=== PATIENT | male | born 1955 | race Caucasian/White ===

== ENCOUNTER 2018-11-27 20:13 | Inpatient (IN) ==
[~2018-11-27 20:13] MED LIST: VANCOMYCIN 1 GM/NS 1 GM/250 ML IVPB IV ONE
[2018-11-27] MEDS ORDERED: NS 1,000 ML IV ONE ×2 (20:41→21:44)
[2018-11-27 21:14] LABS: URINE SOURCE CATH
--- NOTE | 2018-11-27 21:18 | Diag Imaging Result Doc PS360 ---
EXAM: CHEST-1 VIEW 11/27/2018 HISTORY: ams TECHNIQUE: AP portable semiupright at 2110 COMMENT: The inspiration is better than on 11/21/2013. There are no focal opacities. There is a calcified granuloma in the right lower lobe. IMPRESSION: No acute disease. Electronically signed by Sedrick Gil 11/27/2018 9:15 PM
[2018-11-27 21:20] LABS: BILIRUBIN URINE NEGATIVE (NEGATIVE); BLOOD URINE LARGE (NEGATIVE); COLOR YELLOW; GLUCOSE URINE >1000 mg/dL (NEGATIVE); KETONE URINE TRACE mg/dL (NEGATIVE); LEUKOCYTES URINE TRACE (NEGATIVE); NITRITE URINE NEGATIVE (NEGATIVE); PH URINE 5.5; PROTEIN URINE 100 mg/dL (NEGATIVE); SP GRAVITY URINE 1.015; TURBIDITY URINE HAZY (CLEAR); UROBILINOGEN URINE NORMAL (NORMAL)
[2018-11-27 21:24] LABS: UR EPITHELIAL CELLS <10 /HPF (<10); URINE BACTERIA NEGATIVE /HPF; URINE RBC <10 /HPF (<10); URINE WBC <10 /HPF (<10)
[2018-11-27 21:29] LABS: BASO# 0.05 X1000 (0.0-0.2); BASO% 0.2 % (0.0-0.8); EOS# 0.01 X1000 (0.0-0.7); HEMATOCRIT 30.8 % (42.0-52.0); HEMOGLOBIN 10.4 g/dL (14.0-18.0); IMM GRAN# 0.35 X1000 (0.0-0.04); IMM GRAN% 1.3 % (0.0-0.5); LYMPH# 1.07 X1000 (1.2-3.4); LYMPH% 3.8 % (20.5-51.1); MCH 28.7 PG (27-31); MCHC 33.8 g/dL (33-37); MCV 84.8 FL (81-99); MONO# 1.66 X1000 (0.11-0.59); MONO% 5.9 % (1.7-9.3); MPV 13.2 FL (7.4-10.4); NEUT# 24.78 X1000 (1.4-6.5); NEUT% 88.8 % (42.2-75.2); PLT 124 X1000 (130-400); RBC 3.63 XMIL (4.7-6.1); WBC 27.92 X1000 (4.8-10.8)
[2018-11-27 21:32] LABS: UR AMPHETAMINES QUAL NONE DETECTED (NONE DETECT); UR BARBITUATES QUAL NONE DETECTED (NONE DETECT); UR BENZODIAZEPIN QUAL NONE DETECTED (NONE DETECT); UR CANNABINOIDS QUAL NONE DETECTED (NONE DETECT); UR COCAINE QUAL NONE DETECTED (NONE DETECT); UR METHADONE QUAL NONE DETECTED (NONE DETECT); UR OPIATES QUAL NONE DETECTED (NONE DETECT); UR OXYCODONE QUAL NONE DETECTED (NONE DETECT); UR PCP QUAL NONE DETECTED (NONE DETECT)
[2018-11-27 21:42] LABS: BE -13.1 mmoll (-2.0-2.0); BLOOD TYPE VENOUS; HCO3-(ACT) 13.9 mmoll (22-27); PCO2(98.6) 28 mmHg (40-60); PO2(98.6) 25 mmHg (30-55); SAMPLE BLOOD; SAO2 60.1 % (40.0-85.0); pH(98.6) 7.26 (7.32-7.43)
[2018-11-27 21:43] LABS: URINE CASTS NONE SEEN; URINE CRYSTALS NONE SEEN; URINE YEAST NONE SEEN
[2018-11-27] MEDS ORDERED: TYLENOL PR ONE (21:45)
[2018-11-27] MEDS ORDERED: ZOSYN 4.5 GM in NS 100 ML IV ONE (21:45)
[2018-11-27 21:50] LABS: GLUCOSE 693 mg/dL (70-104)
[2018-11-27 21:51] LABS: AGAP 25; ALB/GLOB RATIO 0.8; ALBUMIN 2.6 g/dL (3.5-5.0); ALKALINE PHOSPHATASE 177 U/L (32-122); BUN 61 mg/dL (8-22); CALCIUM 8.4 mg/dL (8.8-10.2); CHLORIDE 87 mmol/L (98-107); COSMO 302; CREATININE 4.2 mg/dL (0.7-1.2); ESTIMATED GFR 14; GOT 188 U/L (10-34); GPT 67 U/L (10-44); LIPASE 45 U/L (13-60); POTASSIUM 4.2 mmol/L (3.5-5.1); SODIUM 125 mmol/L (136-145); TCO2 13 mmol/L (25-35); TOTAL BILIRUBIN 1.26 mg/dL (0.20-1.00); TOTAL PROTEIN 5.8 g/dL (6.3-8.3)
[2018-11-27] MEDS ORDERED: HUMULIN R 100 UNIT in NS 100 ML IV SCH (22:00)
[2018-11-27 22:28] LABS: PHENYTOIN < 0.80 ug/mL (10-20)
[2018-11-27] MEDS ORDERED: CEREBYX 1,000 MG in NS 50 ML IV ONE (23:00)
[2018-11-27] MEDS ORDERED: CEREBYX IV ONE (23:03)
[2018-11-28] MEDS ORDERED: NS 1,000 ML IV ONE (01:58)
[2018-11-28] MEDS ORDERED: ASPIRIN PR ONE (02:15)
--- NOTE | 2018-11-28 02:15 | PROVIDER DOCUMENTATION ---
This chart was entered by Fredis Abrams Scribe, acting as scribe for Ivana Rose MD. HPI-Neurological Disorder - General Chief Complaint: Seizure Stated Complaint: seizure/fall Time Seen by Provider: 11/27/18 20:51 Source: family (Mom) Unable to obtain history due to:: other (Confused unable to articulate) Allergies/Adverse Reactions: Patient Allergies Allergy/AdvReac Type Severity Reaction Status Date / Time No Known Allergies Allergy Verified 11/27/18 21:10 Home Medications: Home Medication List Medication Instructions Recorded Confirmed Last Taken Type Amitriptyline [Elavil] 25 mg PO HS 11/16/13 11/16/13 11/15/13 20:00 History Atenolol 50 mg PO DAILY 11/16/13 11/16/13 11/15/13 18:00 History Levetiracetam [Levetiracetam ER] 1,000 mg PO BID 11/16/13 11/16/13 11/15/13 08:00 History Metformin E.r. [Glucophage Xr] 750 mg PO QPM 11/16/13 11/16/13 11/15/13 18:00 History Phenytoin [Dilantin] 200 mg PO BID 11/16/13 11/16/13 11/15/13 21:00 History Simvastatin 40 mg PO QHS 11/16/13 11/16/13 11/15/13 21:00 History Docusate Sodium [Colace] 100 mg PO BID #0 capsule 12/17/13 Unknown Rx Glyburide 2.5 mg PO DAILY #0 tablet 12/17/13 Unknown Rx Hydrocodone/APAP 5 mg/325 mg 1 each PO Q8HR #0 tablet 12/17/13 Unknown Rx [[place]-5] Iron Carbonyl/Ascorbic Acid 1 each PO BID #0 tablet 12/17/13 Unknown Rx [Icar-C] Lactobacillus Rhamnosus GG 1 each PO BID #0 capsule 12/17/13 Unknown Rx [Culturelle] Polyethylene Glycol 3350 [Miralax] 17 gm PO DAILY PRN #0 powd.pack 12/17/13 Unknown Rx - History of Present Illness-Neuro Nature of Presenting Problem: Pt is a 63 y/o M comes to the ED by EMS with AMS. Per EMS pt fell from bed and likely had a seizure and was found to have hyperglycemia wtih EMS. Pt markedly confused on arrival and unable to provide any history. Per mom pt has been in the bed for the past 3 days and she does not think he has been complaint with his meds. States he fell from bed earlier today and appeared to have a seizure and then remained confused despite several hours passing so she called EMS. No known fever or ingestion. Severity: reports: severe Onset/Duration: reports: this afternoon Timing: reports: still present Context: reports: seizure activity Approximate time patient was last seen normal?: 14:00 Character of Altered Mental Status: reports: confused, seizure activity Any recent trauma/injury?: reports: none Review of Systems - Adult - REVIEW OF SYSTEMS - ADULT ROS:: unobtainable per condition Constitutional: denies: chills, fever Past History - Adult - PAST MEDICAL HISTORY-ADULT Review of Records: reports: Old Records Reviewed, Nursing Assessment Review, Medications Reviewed Physical Exam- Neurological - Physical Exam-Neuro Initial Vital Signs Reviewed: Yes General Appearance: other (confused with purposeful mumbling and reaching out but incomprehensible words,) Eye Exam: bilateral eye: normal inspection, PERRL HENMT: moist mucous membranes, normal ENT inspection, pharynx normal, other (dried bloody appearing emesis at corner of mouth) Head Injury: no evidence of injury. negative: active bleeding Neck: non-tender, full range of motion, supple, normal inspection Respiratory: lungs clear, normal breath sounds, no pleuratic chest pain, no respiratory distress, no accessory muscle use Cardiovascular: normal peripheral pulses, tachycardia Abdominal Exam: normal bowel sounds, soft, tenderness Extremity: non-tender, no pedal edema. negative: other (bilateral ulcers on feet with necrosis to bialteral greater toes) social science research assistant Exam: normal hearing, PERRL. negative: normal speech Neurologic: other (moves all extremities equally, confused, no facial droop). negative: facial droop, motor weakness Integumentary: normal color, normal turgor, warm/dry Psych/Mental Status: negative: normal mood/affect (confused) Progress - PLAN OF CARE/RESULTS Progress/Plan/Lab Results: Vital Signs - 8 hr 11/27/18 20:12 11/27/18 20:19 11/27/18 20:28 Temperature 97.3 F L Pulse Rate 111 H 113 H 112 H Respiratory Rate 30 H 25 H 28 H Blood Pressure 139/72 139/72 O2 Sat by Pulse Oximetry 11/27/18 20:30 11/27/18 20:32 11/27/18 20:37 Temperature Pulse Rate 113 H 114 H 115 H Respiratory Rate 36 H 24 30 H Blood Pressure 126/108 124/93 O2 Sat by Pulse Oximetry 11/27/18 20:40 11/27/18 20:50 11/27/18 20:52 Temperature 102.2 F H Pulse Rate 110 H 115 H Respiratory Rate 27 H 26 H Blood Pressure O2 Sat by Pulse Oximetry 11/27/18 21:00 11/27/18 21:01 11/27/18 21:06 Temperature Pulse Rate 112 H 113 H 113 H Respiratory Rate 23 23 28 H Blood Pressure 81/76 136/95 O2 Sat by Pulse Oximetry 11/27/18 21:07 11/27/18 21:10 11/27/18 21:14 Temperature Pulse Rate 112 H 115 H 112 H Respiratory Rate 23 29 H 37 H Blood Pressure 144/72 O2 Sat by Pulse Oximetry 11/27/18 21:20 11/27/18 21:21 11/27/18 21:30 Temperature Pulse Rate 110 H 114 H 109 H Respiratory Rate 33 H 32 H 24 Blood Pressure 159/151 O2 Sat by Pulse Oximetry 91 L 92 L 11/27/18 21:31 11/27/18 21:41 11/27/18 21:51 Temperature Pulse Rate 116 H 108 H 113 H Respiratory Rate 28 H 22 29 H Blood Pressure 124/69 126/74 128/77 O2 Sat by Pulse Oximetry 95 11/27/18 21:52 11/27/18 22:31 11/27/18 22:35 Temperature Pulse Rate 112 H 115 H 112 H Respiratory Rate 26 H 24 36 H Blood Pressure 121/78 O2 Sat by Pulse Oximetry 84 L 11/27/18 22:40 11/27/18 22:41 11/27/18 22:50 Temperature Pulse Rate 117 H 117 H 124 H Respiratory Rate 29 H 33 H 32 H Blood Pressure 121/78 O2 Sat by Pulse Oximetry 87 L 89 L 92 L 11/27/18 22:51 11/27/18 23:00 11/27/18 23:03 Temperature Pulse Rate 122 H 123 H 124 H Respiratory Rate 27 H 27 H 27 H Blood Pressure 144/70 115/49 O2 Sat by Pulse Oximetry 85 L 91 L 87 L 11/27/18 23:10 11/27/18 23:11 11/27/18 23:20 Temperature 101.3 F H 101.5 F H Pulse Rate 122 H 122 H 119 H Respiratory Rate 31 H 29 H 25 H Blood Pressure 130/85 O2 Sat by Pulse Oximetry 96 89 L 94 L 11/27/18 23:21 11/27/18 23:22 11/27/18 23:30 Temperature 101.5 F H Pulse Rate 120 H 117 H 120 H Respiratory Rate 31 H 30 H 29 H Blood Pressure 123/87 O2 Sat by Pulse Oximetry 97 99 77 L 11/27/18 23:31 11/27/18 23:40 11/27/18 23:50 Temperature Pulse Rate 121 H 124 H 120 H Respiratory Rate 28 H 31 H 30 H Blood Pressure 133/77 O2 Sat by Pulse Oximetry 95 98 98 11/27/18 23:52 11/28/18 00:00 11/28/18 00:02 Temperature 101.3 F H Pulse Rate 120 H 116 H 115 H Respiratory Rate 28 H 25 H 28 H Blood Pressure 104/63 87/61 O2 Sat by Pulse Oximetry 97 97 97 11/28/18 00:10 Temperature Pulse Rate 113 H Respiratory Rate 29 H Blood Pressure O2 Sat by Pulse Oximetry 98 11/27/18 21:28 Stool Occult Blood (JOHN) - Final Stool 11/27/18 20:54 Gastric Occult Blood - Final Emesis Laboratory Results - last 24 hr 11/27/18 11/27/18 11/27/18 20:18 20:22 20:22 WBC 27.92 H RBC 3.63 L Hgb 10.4 L Hct 30.8 L MCV 84.8 MCH 28.7 MCHC 33.8 RDW Std Deviation 16.0 H Plt Count 124 L MPV 13.2 H Immature Gran % (Auto) 1.3 H Neut % (Auto) 88.8 H Lymph % (Auto) 3.8 L [place] % (Auto) 5.9 Eos % (Auto) 0.0 Baso % (Auto) 0.2 Immature Gran # (Auto) 0.35 H Neut # (Auto) 24.78 H Lymph # (Auto) 1.07 L [place] # (Auto) 1.66 H Eos # (Auto) 0.01 Baso # (Auto) 0.05 Specimen Type VBG pH VBG pCO2 VBG pO2 VBG HCO3 VBG O2 Saturation VBG Base Excess VBG Lactate Sodium Potassium Chloride Carbon Dioxide Anion Gap BUN Creatinine Estimated GFR/1.73 m2 BUN/Creatinine Ratio Glucose POC Glucose 500 H D Calculated Osmolality Calcium Total Bilirubin AST ALT Alkaline Phosphatase Troponin T Total Protein Albumin Globulin Albumin/Globulin Ratio Lipase Urine Source Urine Color Urine Turbidity Urine pH Ur Specific Welch Urine Protein Ur Glucose (Stick) Ur Ketones (Stick) Urine Blood Urine Nitrite Urine Bilirubin Urobilinogen Dipstick Urine Leukocytes Urine WBC (Auto) Urine RBC (Auto) U Epithel Cells (Auto) Urine Bacteria (Auto) Urine Crystals Small Round Cells Urine Casts Urine Yeast-like Cells Urine Opiates Screen Ur Oxycodone Screen Ur Methadone, Qual Ur Barbiturates Screen Total Phenytoin Ur Phencyclidine Scrn Ur Amphetamines Screen U Benzodiazepines Scrn Urine Cocaine Screen U Cannabinoids Screen Plasma/Serum Ethyl Alc 11/27/18 11/27/18 11/27/18 20:22 20:22 20:50 WBC RBC Hgb Hct MCV MCH MCHC RDW Std Deviation Plt Count MPV Immature Gran % (Auto) Neut % (Auto) Lymph % (Auto) [place] % (Auto) Eos % (Auto) Baso % (Auto) Immature Gran # (Auto) Neut # (Auto) Lymph # (Auto) [place] # (Auto) Eos # (Auto) Baso # (Auto) Specimen Type VBG pH VBG pCO2 VBG pO2 VBG HCO3 VBG O2 Saturation VBG Base Excess VBG Lactate Sodium 125 L Potassium 4.2 Chloride 87 L Carbon Dioxide 13 L Anion Gap 25 BUN 61 H Creatinine 4.2 H Estimated GFR/1.73 m2 14 BUN/Creatinine Ratio 15 Glucose 693 H* POC Glucose Calculated Osmolality 302 Calcium 8.4 L Total Bilirubin 1.26 H AST 188 H ALT 67 H Alkaline Phosphatase 177 H Troponin T 0.367 H* Total Protein 5.8 L Albumin 2.6 L Globulin 3.2 Albumin/Globulin Ratio 0.8 Lipase 45 Urine Source CATH Urine Color YELLOW Urine Turbidity HAZY Urine pH 5.5 Ur Specific Welch 1.015 Urine Protein 100 A Ur Glucose (Stick) >1000 A Ur Ketones (Stick) TRACE A Urine Blood LARGE A Urine Nitrite NEGATIVE Urine Bilirubin NEGATIVE Urobilinogen Dipstick NORMAL Urine Leukocytes TRACE A Urine WBC (Auto) <10 Urine RBC (Auto) <10 U Epithel Cells (Auto) <10 Urine Bacteria (Auto) NEGATIVE Urine Crystals NONE SEEN Small Round Cells Not Reportable Urine Casts NONE SEEN Urine Yeast-like Cells NONE SEEN Urine Opiates Screen Ur Oxycodone Screen Ur Methadone, Qual Ur Barbiturates Screen Total Phenytoin < 0.80 L Ur Phencyclidine Scrn Ur Amphetamines Screen U Benzodiazepines Scrn Urine Cocaine Screen U Cannabinoids Screen Plasma/Serum Ethyl Alc 11/27/18 11/27/18 11/27/18 20:50 21:30 22:42 WBC RBC Hgb Hct MCV MCH MCHC RDW Std Deviation Plt Count MPV Immature Gran % (Auto) Neut % (Auto) Lymph % (Auto) [place] % (Auto) Eos % (Auto) Baso % (Auto) Immature Gran # (Auto) Neut # (Auto) Lymph # (Auto) [place] # (Auto) Eos # (Auto) Baso # (Auto) Specimen Type VENOUS VBG pH 7.26 L VBG pCO2 28 L VBG pO2 25 L VBG HCO3 13.9 L VBG O2 Saturation 60.1 VBG Base Excess -13.1 L VBG Lactate 4.10 H Sodium Potassium Chloride Carbon Dioxide Anion Gap BUN Creatinine Estimated GFR/1.73 m2 BUN/Creatinine Ratio Glucose POC Glucose 500 H Calculated Osmolality Calcium Total Bilirubin AST ALT Alkaline Phosphatase Troponin T Total Protein Albumin Globulin Albumin/Globulin Ratio Lipase Urine Source Urine Color Urine Turbidity Urine pH Ur Specific Welch Urine Protein Ur Glucose (Stick) Ur Ketones (Stick) Urine Blood Urine Nitrite Urine Bilirubin Urobilinogen Dipstick Urine Leukocytes Urine WBC (Auto) Urine RBC (Auto) U Epithel Cells (Auto) Urine Bacteria (Auto) Urine Crystals Small Round Cells Urine Casts Urine Yeast-like Cells Urine Opiates Screen NONE DETECTED Ur Oxycodone Screen NONE DETECTED Ur Methadone, Qual NONE DETECTED Ur Barbiturates Screen NONE DETECTED Total Phenytoin Ur Phencyclidine Scrn NONE DETECTED Ur Amphetamines Screen NONE DETECTED U Benzodiazepines Scrn NONE DETECTED Urine Cocaine Screen NONE DETECTED U Cannabinoids Screen NONE DETECTED Plasma/Serum Ethyl Alc 11/28/18 11/28/18 00:10 01:15 WBC RBC Hgb Hct MCV MCH MCHC RDW Std Deviation Plt Count MPV Immature Gran % (Auto) Neut % (Auto) Lymph % (Auto) [place] % (Auto) Eos % (Auto) Baso % (Auto) Immature Gran # (Auto) Neut # (Auto) Lymph # (Auto) [place] # (Auto) Eos # (Auto) Baso # (Auto) Specimen Type VBG pH VBG pCO2 VBG pO2 VBG HCO3 VBG O2 Saturation VBG Base Excess VBG Lactate Sodium Potassium Chloride Carbon Dioxide Anion Gap BUN Creatinine Estimated GFR/1.73 m2 BUN/Creatinine Ratio Glucose POC Glucose 500 H 486 H Calculated Osmolality Calcium Total Bilirubin AST ALT Alkaline Phosphatase Troponin T Total Protein Albumin Globulin Albumin/Globulin Ratio Lipase Urine Source Urine Color Urine Turbidity Urine pH Ur Specific [place] Urine Protein Ur Glucose (Stick) Ur Ketones (Stick) Urine Blood Urine Nitrite Urine Bilirubin Urobilinogen Dipstick Urine Leukocytes Urine WBC (Auto) Urine RBC (Auto) U Epithel Cells (Auto) Urine Bacteria (Auto) Urine Crystals Small Round Cells Urine Casts Urine Yeast-like Cells Urine Opiates Screen Ur Oxycodone Screen Ur Methadone, Qual Ur Barbiturates Screen Total Phenytoin Ur Phencyclidine Scrn Ur Amphetamines Screen U Benzodiazepines Scrn Urine Cocaine Screen U Cannabinoids Screen Plasma/Serum Ethyl Alc Orders Category Date Time Status IV Insertion ORDERED Care 11/27/18 20:41 Completed CHEST-1 VIEW [RAD] Stat Exams 11/27/18 20:[address] ABDOMEN/PELVIS W/O CONTRAST [CT] Stat Exams 11/27/18 21:[address] HEAD W/O CONTRAST [CT] Stat Exams 11/27/18 20:41 Taken ALCOHOL BLOOD Stat Lab 11/27/18 20:22 Completed BLOOD CULTURE [BLDCUL] Stat Lab 11/27/18 21:26 Results CBC WITH DIFF [HEME] Stat Lab 11/27/18 20:22 Completed COMPREHENSIVE METABOLIC PANEL [CHEM] Stat Lab 11/27/18 20:22 Completed Dilantin [PHENYTOIN] [TDM] Stat Lab 11/27/18 20:22 Completed LIPASE [CHEM] Stat Lab 11/27/18 20:22 Completed OCCULT BLOOD NON-FECES Stat Lab 11/27/18 20:54 Completed OCCULT BLOOD SCREENING [STOOL] Stat Lab 11/27/18 21:28 Completed TROPONIN T Stat Lab 11/27/18 20:22 Completed URINALYSIS W/POSS RFLX CULT [URINALYSIS] Stat Lab 11/27/18 20:50 Completed URINE CULTURE [RM] Routine Lab 11/27/18 21:36 Received URINE DRUG SCREEN Stat Lab 11/27/18 20:50 Completed URINE MANUAL MICROSCOPIC [URINALYSIS] Stat Lab 11/27/18 20:50 Completed VENOUS BLOOD GAS [RESP] Routine Lab 11/27/18 21:30 Completed 0.9% Sodium Chloride Inj [Ns] 1,000 ml Med 11/27/18 20:41 Discontinued IV 999 mls/hr 0.9% Sodium Chloride Inj [Ns] 1,000 ml Med 11/27/18 21:44 Discontinued IV 999 mls/hr 0.9% Sodium Chloride Inj [Ns] 1,000 ml Med 11/28/18 01:58 Active IV 999 mls/hr 0.9% Sodium Chloride Inj [Ns] 100 ml Med 11/27/18 22:00 Active Insulin Human Regular [Humulin R] 100 unit IV 8 mls/hr Acetaminophen [Tylenol] Med 11/27/18 21:45 Discontinued 650 mg IN NOW ONE Fosphenytoin [Cerebyx] 1,000 mg Med 11/27/18 23:00 Discontinued 0.9% Sodium Chloride Inj [Ns] 50 ml IV ONCE Piperacillin/Tazobactam [Zosyn] 4.5 gm Med 11/27/18 21:45 Discontinued 0.9% Sodium Chloride Inj [Ns] 100 ml IV NOW Vancomycin 1 gm/Ns Med 11/27/18 17:00 Discontinued 1 gm in 250 ml IV TODAY@1700 AMS with tachcyardia, seizure and hyperglycemia Will further evaluate for causes including but not limited to DKA, sepsis, trauma, ich, electrolyte imbalance, acs, ingestion Result Diagrams: 11/27/18 20:22 11/27/18 20:22 - REASSESSMENT Reassessment #1 Status: unchanged (continued confusion, marked leukocytosis with hyperglycemia and acidosis consistent with DKA. IVF given and insulin, vanco and zosyn started. Dilantin level also undetectable fospheytoin given. Elevated troponin but as with gastroocult + emesis will hold asa at this time. CT's pending) Reassessment #2 Status: unchanged (CT's remarkable only for possible early cholecystitis, not a surgical candidate at this time due to severity of his other conditions. Will admit. Discussed case with Dr. Quiroga, hospitalist who will see and admit pt and recommends rectal ASA for troponin elevation.) - EKG 1 Time of EKG reading by physician:: 20:12 EKG Read and Signed by:: Ivana Rose EKG Interpretation (*Must complete 3 of following elements*): Abnormal Rate: 114 Rhythm: sinus tach Comments: otherwise normal ECG - XRAY 1 XRAY Study: Chest Impression: Normal (EXAM: CHEST-1 VIEW 11/27/2018 HISTORY: ams TECHNIQUE: AP portable semiupright at 2110 COMMENT: The inspiration is better than on 11/21/2013. There are no focal opacities. There is a calcified granuloma in the right lower lobe. IMPRESSION: No acute disease. 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 This could represent esophagitis versus neoplasm. Cholelithiasis present. Mild gallbladder wall thickening. Likely represent mild cholecystitis, Splenomegaly present with indeterminate hyperdensity in the spleen.) Impression: See EMR Report Departure - Departure Date of Disposition Decision: 11/28/18 Time of Disposition Decision: 02:14 DIAGNOSIS: Seizure Sepsis Qualifiers: Sepsis type: sepsis due to unspecified organism Qualified Code(s): A41.9 - Sepsis, unspecified organism DKA (diabetic ketoacidoses) Qualifiers: Diabetes mellitus type: other specified (including VERENA) Diabetes mellitus complication detail: without coma Qualified Code(s): E13.10 - Other specified diabetes mellitus with ketoacidosis without coma Altered mental state Qualifiers: Altered mental status type: unspecified Qualified Code(s): R41.82 - Altered mental status, unspecified Disposition: ADMITTED INPATIENT 09 Certified Medical Emergency: Emergent Condition: Critical Referrals and Follow-Ups: Tristan Hernandez Jr, MD [Primary Care Provider] - - Critical Care Note This patient required my direct & personal management of CC.: Yes Total Time (mins): 90 Critical Care Statement: This patient required my direct personal management to treat or rule out processes, the absence of which, could potentiallly result in sudden, clinically significant life or limb threatening deterioration. Attestation - Physician/ RAMON Attestation Patient care was provided by Advanced Practice Provider:: No The physician spent face to face time with patient:: Yes Advanced Practice Provider documentation review:: Supervising physician onsite and consulted in the evaluation and care of this patient. The physician did have a face to face encounter with the patient. This chart was documented by the indicated scribe, (Fredis Abrams Scribe) and accurately reflects the services I performed and decisions made by me, Ivana Rose MD, as attested by the provider's signature.
[2018-11-28] MEDS ORDERED: KEPPRA 1,000 MG in NS 100 ML IV ONE (02:24)
[2018-11-28] MEDS ORDERED: SODIUM BICARBONATE 8.4% IV PUSH ONE (03:00)
[2018-11-28] MEDS ORDERED: ZOFRAN IV PRN (03:31)
[2018-11-28] MEDS ORDERED: NS 1,000 ML IV SCH ×2 (03:31→04:15)
[2018-11-28] MEDS ORDERED: SODIUM CHLORIDE 0.9% INJ ONE (03:31)
[2018-11-28 03:37] LABS: MAGNESIUM 2.1 mg/dL (1.5-2.7); PHOSPHORUS 3.3 mg/dL (2.7-4.5)
[2018-11-28] MEDS ORDERED: TYLENOL PR PRN (04:15)
[2018-11-28] MEDS ORDERED: D50W SYRINGE IV PRN (04:15)
[2018-11-28] MEDS ORDERED: HUMULIN R IV ONE (04:15)
[2018-11-28] MEDS ORDERED: D5 1/2 NS + KCL 10 MEQ 1,000 ML IV SCH (04:15)
[2018-11-28] MEDS ORDERED: MAGNESIUM SULFATE 2 GM/S.W.I. 2 GM/50 ML IVPB IV PRN (04:15)
[2018-11-28] MEDS: PROTONIX IV SCH ×2 (04:16→14:59)
[2018-11-28 04:26] LABS: UR AMPHETAMINES QUAL NONE DETECTED (NONE DETECT); UR BARBITUATES QUAL NONE DETECTED (NONE DETECT); UR BENZODIAZEPIN QUAL NONE DETECTED (NONE DETECT); UR CANNABINOIDS QUAL NONE DETECTED (NONE DETECT); UR COCAINE QUAL NONE DETECTED (NONE DETECT); UR METHADONE QUAL NONE DETECTED (NONE DETECT); UR OPIATES QUAL NONE DETECTED (NONE DETECT); UR OXYCODONE QUAL NONE DETECTED (NONE DETECT); UR PCP QUAL NONE DETECTED (NONE DETECT)
[2018-11-28 04:29] LABS: RETIC% 0.22 % (0.8-2.1); RETIC-HE 27.3 PG (28.2-36.6)
[2018-11-28] MEDS: ZOSYN 3.375 GM in NS 50 ML IV SCH ×4 (04:45→23:48)
--- NOTE | 2018-11-28 04:47 | HISTORY AND PHYSICAL ---
REASON FOR ADMISSION: Multiple seizures today and increased lethargy and unresponsiveness. HISTORY OF PRESENT ILLNESS: Mr. Antonio Reyez is a 63-year-old man with longstanding history of epilepsy, type 2 diabetes and hypertension last admitted here in 2014 for DKA complicated by DUNIA. The patient also had anemia at that time and we were concerned that he may have had a GI bleed. 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 Also at that time the patient had C. difficile and was treated for that too. There is no family at bedside. He was brought in my EMS along with his mother, and from that I can gather from the nurses, the mother, who is a very poor historian, said that the patient had been having frequent seizures over the last couple of months. Over the last week he was having almost daily seizures, but usually when he gets a seizure, he would bounce back to his baseline. Today it was unusual in the sense that he had 3-4 seizures [id number] and never came back to his cognitive baseline. It was at that juncture his mother called EMS and he was brought in. The patient has not had any seizure activity since he has been here. His mother reported that he is not taking his medications, i.e. his insulin and the seizure medications. The patient over the last couple of weeks has not really been ambulating or doing anything meaningful, according to his mother's reports. Unfortunately, we cannot get any information from the patient or anybody else to confirm or refute what his mother has said. REVIEW OF SYSTEMS: Unable to be performed because of obvious reasons. ALLERGIES: NO KNOWN ALLERGIES YET. MEDICATION LIST: Is yet to be confirmed. SURGICAL HISTORY: Per his old records, he has had a back surgery. FAMILY HISTORY: Unable to confirm. SOCIAL HISTORY: Per his old records, positive for tobacco use. LAB WORK: White count 28,000, hemoglobin 10, hematocrit 30, platelets 124,000 with 88% neutrophils. Sodium 125, glucose 693, BUN 61, creatinine 4.1, anion gap 25, bicarbonate 13, total bilirubin 1.26, AST 180, ALT 68, alkaline phosphatase 177. Troponin is 0.367. Lipase is normal. UDS is clean, phenytoin is undetected. Urinalysis: Greater than 1000 glucose, ketones trace, large blood. Venous blood was done: pH 7.26 which is expected, bicarbonate 14, but his lactate was 4 which is also expected. CT scan of the abdomen showed splenomegaly, esophageal thickening which could be esophagitis versus neoplasm and gallbladder wall thickening. Head CT does not show acute intracranial bleed, although prior old CT did show prior stroke and there is a mass in the right frontal area which could be a meningioma from before. Chest film: No acute disease. PHYSICAL EXAMINATION: VITAL SIGNS: Blood pressure 94.72, heart rate 117, temperature 102.4, respiratory rate 31. GENERAL: The patient is tachypneic and has a Kussmaul pattern of breathing. He is completely unresponsive, only to pain. He has no focal deficits when noxious stimulus is applied. HEENT: Head is normocephalic, atraumatic. Eyes: Pupils are reactive to light. No nystagmus noted. He is anicteric and mildly pale. ENT and oropharynx exam: The patient has some stains of coffee ground in his mother. No central cyanosis noted. NECK: Supple. No JVD or carotid bruits. He has significant decreased skin turgor. CHEST: Clear when auscultated with good entry in the bases. CARDIOVASCULAR: First and second heart sounds heard. No murmurs, gallops or rubs. Rhythm is regular and tachycardic. ABDOMEN: Full, soft. There is no rigidity noted. No masses appreciated. No grimacing when abdomen was palpated. Bowel sounds are hypoactive. After we inserted an aspirin suppository we noted dark blood coming from his rectum. RECTAL: Deferred at this time. EXTREMITIES: The patient has mild evidence of livido reticularis on his left lower extremity. 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 He has significant decreased pulses in all extremities, worse in the lower extremities and they are cool to touch. He also has a dystrophic nail bed of the left hallux and area of bruising on the medial aspect of the left hallux. NEUROLOGIC: As stated before, no gross focal deficits when pain applied to all his extremities. He withdraws appropriately. SKIN: The patient is slightly pallid with no overt breakdown at this time. MUSCULOSKELETAL: Normal tone, and otherwise unremarkable. ASSESSMENT: 1. Diabetic ketoacidosis. 2. Zyo-ZO-lfjujgj elevation myocardial infarction. 3. Status epilepticus. 4. Upper gastrointestinal bleed. 5. Acute kidney injury secondary to diabetic ketoacidosis and poor oral intake. 6. Probable mild acute cholecystitis. 7. Peripheral arterial disease. 8. Splenomegaly of uncertain origin. 9. Esophagitis probably causing upper gastrointestinal bleed versus possible neoplasia. 10.Probable sepsis probably secondary to intraabdominal process. Cannot rule out the possibility of aspirin pneumonia also in light of multiple seizures at home. PLAN: DKA protocol was initiated. Aggressive fluid resuscitation will be impossible as the DKA protocol was extremely liberal, especially in light of the possibility that this patient might have simultaneous upper GI bleed. IV TPA is also given. Repeat CBC will be done at 6 or 7 o'clock and depending on how far the patient's hematocrit has plummeted, he may need transfusion. I will consult Cardiology to see the patient. This patient's GI bleed presents a conundrum being that neither antiplatelet therapy or heparinoids can be prescribed for this patient at this point in time. Hopefully with aggressive fluid resuscitation heart rates can come down. I will be very hesitant to put this patient on beta blockers since he is teetering on the point of going into shock. Will start the patient on Zosyn for possible aspiration pneumonia and probable cholecystitis. Once the patient is stable, will recommend working this patient up for splenomegaly to ensure the patient does not have a lymphoproliferative disease. This splenomegaly could be a hangover from prior bacterial endocarditis several years ago. Statin therapy can be administered when the patient is much more stable. The patient's urine output is poor. It is no more than 50-100 mL which indicates that he has developed acute tubular necrosis or he is profoundly dehydration. BMP will be followed closely. The patient has evidence of peripheral arterial disease and hence the need for antiplatelet therapy and statin therapy once he is stable. The patient was loaded with Cerebyx in light of the patient's absent Dilantin in his system. Dilantin levels should be followed for the next 24 hours. Will continue home dose of Dilantin. Also will continue his Keppra which he takes 1 g q.12. Consult Neurology for further input. P.r.n. Ativan if the patient has breakthrough seizures. Will also consult GI for upper GI bleed in this patient. TOTAL CRITICAL CARE TIME FOR THIS PATIENT: 60 minutes. cc: Paulino Quiroga MD
[2018-11-28 04:50] LABS: MAGNESIUM 1.9 mg/dL (1.5-2.7); PHOSPHORUS 1.9 mg/dL (2.7-4.5)
[2018-11-28 05:20] LABS: CALCIUM 7.6 mg/dL (8.8-10.2); CHOLESTEROL 121 mg/dL (0-200); CREATININE 4.5 mg/dL (0.7-1.2); HDL 12 mg/dL (35-55); POTASSIUM 4.6 mmol/L (3.5-5.1); TRIGLYCERIDES 434 mg/dL (39-160)
[2018-11-28] MEDS ORDERED: POTASSIUM CHLORIDE 40 MEQ/SWI 40 MEQ/100 ML IVPB IV PRN (05:30)
[2018-11-28 05:40] LABS: ALLEN TEST YES; BE -7.9 mmoll (-3.0-3.0); BLOOD TYPE ARTERIAL; HCO3-(ACT) 18.8 mmoll (20.0-26.0); PCO2(98.6) 32 mmHg (35-45); PO2(98.6) 282 mmHg (60-100); SAMPLE BLOOD; pH(98.6) 7.33 (7.35-7.45)
[2018-11-28 05:42] LABS: MODALITY PRB
[2018-11-28 05:57] LABS: FERRITIN 5056 ng/mL (30-400)
[2018-11-28] MEDS: NS 1,000 ML IV SCH ×5 (05:57→22:39)
[2018-11-28 06:10] LABS: CK INDEX 0.5 (0.0-2.5); CK-MB 20.88 ng/mL (0.0-5.0)
[2018-11-28 06:55] LABS: UR CREAT RANDOM 91.6 mg/dL (14-26)
--- NOTE | 2018-11-28 07:10 | Diag Imaging Result Doc PS360 ---
EXAM: CT HEAD W/O CONTRAST HISTORY: ams TECHNIQUE: CT head without contrast COMPARISON: None. FINDINGS: No parenchymal hemorrhage. No epidural or subdural hematoma. No subarachnoid hemorrhage. There is encephalomalacia from an old infarct in the right occipital lobe. This was not present on the prior exam. There are also mild chronic microvascular ischemic changes. There is a densely calcified 12 mm nodule along the anterior falx. No surrounding edema. This is unchanged. No hydrocephalus. No sinus opacification. IMPRESSION: 1.No hemorrhage 2.Stable anterior falx meningioma 3.And chronic supratentorial infarct 4.Chronic microvascular ischemic changes 5.A preliminary report was given at 11:03 PM on 11/27/2018 This exam was performed using automated exposure control, adjustment of mA or kV according to patient size, and/or use of iterative reconstruction technique. Electronically signed by Hipolito Kohli 11/28/2018 7:08 AM
--- NOTE | 2018-11-28 07:32 | Diag Imaging Result Doc PS360 ---
EXAM: CT ABDOMEN/PELVIS W/O CONTRAST HISTORY: abdominal pain TECHNIQUE: CT abdomen and pelvis without contrast COMPARISON: 11/18/2013 FINDINGS: There are calcified subcarinal and right hilar lymph nodes. There is thickening to the wall of the distal esophagus. A calcified granuloma is present laterally in the right middle lobe. Mild thickening to the right posterior pleural surface. Normal noncontrasted liver. There are several tiny stones in the gallbladder. Questionable mild thickening to the gallbladder. The spleen measures 15.6 cm in AP diameter. Normal pancreas and adrenal glands. The left kidney is atrophic. No renal stone or hydronephrosis. No right renal stone or right-sided hydronephrosis. No aortic aneurysm. Mild atherosclerosis. No bowel obstruction. No inflammation about the cecum. No abscess. The prostate is not enlarged. No ascites. Mild scoliosis with prominent degenerative spine changes with a mild compression fracture to the L3 vertebra. This was not present on the prior exam. IMPRESSION: 1.Cholelithiasis with questionable cholecystitis 2.L3 compression fracture not present on the prior exam 3.Thickening to the wall of the distal esophagus. Further workup suggested. 4.Splenomegaly 5.A preliminary report was given at 11:07 PM on 11/27/2018 This exam was performed using automated exposure control, adjustment of mA or kV according to patient size, and/or use of iterative reconstruction technique. Electronically signed by Hipolito Kohli 11/28/2018 7:29 AM
[2018-11-28] MEDS ORDERED: CARDIZEM IV ONE (08:06)
[2018-11-28] MEDS: CARDIZEM 100 MG/NS 100 MG/100 ML IVPB IV SCH ×2 (08:27→17:12)
[2018-11-28] MEDS ORDERED: DILANTIN IV SCH (09:00)
[2018-11-28] MEDS: ASPIRIN PR SCH (09:01)
[2018-11-28 09:12] LABS: INR 1.2; PROTIME 16.2 Seconds (11.0-16.0)
--- NOTE | 2018-11-28 09:14 | EKG Report ---
Test Performed on : 11/27/2018 8:15:02 PM Test Reason : ED. NO EKG ORDER FOR MUSE Blood Pressure : / mmHG Vent. Rate : 114 BPM Atrial Rate : 114 BPM P-R Int : 152 ms QRS Dur : 086 ms QT Int : 362 ms P-R-T Axes : 012 002 054 degrees QTc Int : 498 ms Sinus tachycardia. Otherwise normal ECG When compared with ECG of 17-NOV-2013 04:54, No significant change was found Unconfirmed Result
[2018-11-28] MEDS ORDERED: NS 250 ML ONE (09:16)
--- NOTE | 2018-11-28 10:23 | GASTROENTEROLOGY CONSULTATION ---
DATE: 11/28/2018 REASON FOR CONSULT: Question GI bleed, anemia HPI: Mr. Antonio Reyez is a 63 year old man with history of siezure disorder, HTN, DM2, h/o MV endocarditis, h/o cdiff who presented with seizures and AMS found to have DKA, DUNIA, and afib with RVR. GI was consulted to evaluate for possible GI bleed. We are unable to obtain ROS given patient's AMS. There is no reported history by mother, ER physician, or CARD GRINDER HELPER of GI bleeding. He does have anemia with hgb of 10.0 (unknown baseline) and CTAP showing distal esophageal wall thickening. ROS: Unable to obtain PMH: as per HPI PSH: Per records, had back surgery MEDS: unable to reconcile FH: Unable to obtain SH: Per records, he is a smoker PE: VS: T 97.9 HR 107 BP 105/96 RR 28 99% on non-breather GEN: obtunded, nonresponsive to noxious stimuli HEENT: anicteric, pupils are equal NECK: supple, no jvd CV: irregularly irregular, tachycardic PULM: increased WOB, CTAB anteriorly EXT: No c/c/e. Multiple foot ulcers bilaterally SKIN: scattered UE ecchymoses and abrasions NEURO: minimally responsive to noxious stimuli LABS: Na 125 K 4.2 CL 87 CO2 13 BUN 61 Cr 4.1 glu 693 AG 25 WBC 27.9 Hgb 10.4 plts 124 Albumin 2.6 Tbili 1.26 AST 188 ALT 67 ALP 177 lipase 25 folate 8.5 UA large blood, >1000 glucose trop 0.414 iron 16 ferritin 5056 Utox neg ethanol neg BCx2 growing GPC ECHO 11/27/2018 CONCLUSIONS: Mobile vegetation noted in the mitral valve suggestive of endocarditis. Would recommend transesophageal echocardiogram if clinically indicated. IMAGING: CT A/P 11/27/2018 IMPRESSION: 1.Cholelithiasis with questionable cholecystitis 2.L3 compression fracture not present on the prior exam 3.Thickening to the wall of the distal esophagus. Further workup suggested. 4.Splenomegaly 5.A preliminary report was given at 11:07 PM on 11/27/2018 HCT 4/8: no acute process A/P: Mr. Antonio Reyez is a 63 year old man with history of siezure disorder, HTN, DM2, h/o MV endocarditis, h/o cdiff who presented with seizures and AMS found to have DKA, DUNIA, afib with RVR, sepsis with GPC bacteremia. GI was consulted to evaluate for possible GI bleed. Patient hgb is 10 without any witnessed GI bleeding including hematemesis, melena, or rectal bleeding. Anemia workup reveals AOCD and folate deficiency. #Sepsis: ECHO shows endocarditis - on vancomycin and zosyn; - question whether etiology is from diabetic foot ulcers - recommend ID consultation for antibiotic recommendation and duration of tx #AMS: suspect postictal from recent seizure; HCT negative for acute process - on antiepileptic per primary - recommend neurology consultation #Question acute cholecystitis: abnormal LFTs; unclear if related to underlying liver disease - on abx; consider HIDA scan once more stable #Anemia: no overt bleeding; continue PPI IV BID; receiving aspirin; hold if develops acute bleeding; replete folate with folic acid #Esophageal wall thickening: suspect esophagitis; consider EGD once mental status improves #DKA: defer mgmt to primary #DUNIA: defer mgmt to primary; recommend nephrology consultation given degree of acidosis #DM2: IVFs, SSI, defer mgmt to primary #Diabetic foot ulcers: recommend compensation and benefits analyst Will follow with you. [facility] INSANES[facility]
--- NOTE | 2018-11-28 10:24 | PROGRESS NOTE ---
DATE: 11/28/2018 SUBJECTIVE: Mr. Reyez presented early this morning with multiple seizures, increased lethargy, unresponsive. Mr. Antonio Reyez is a 63-year-old male with longstanding history of epilepsy, type 2 diabetes, hypertension, admitted in 2013 for DKA complicated by acute kidney injury. The patient also had anemia at that time. There was concern he may have GI bleed. Last time, he was found to have mitral valve endocarditis and was treated with 4 week intravenous antibiotics. Also at that time, the patient had C. difficile and was treated for that, too. Brought in by EMS along with his mother, having infrequent seizure disorder in the last couple of months. Over the last week, almost daily seizures, then he would bounce back to baseline. Admitted to the hospital this morning. He is very lethargic and appears to have diabetic ketoacidosis, so we tried to continue aggressive fluid resuscitation. He has simultaneously upper GI bleed or possible GI bleed, so continue to follow his hemoglobin and hematocrit. We are going to have to continue aggressive fluid resuscitation and treat him for possible aspiration pneumonia and possible sepsis as well. He has a lymphoproliferative disease, splenomegaly of uncertain origin. OBJECTIVE: Vital signs: Today, temperature is 97.9, pulse 100, respirations 28, blood pressure 105/62. Pupils are equal and round. Lungs are clear in all lung benitez. Cardiovascular: Regular rate and rhythm without murmur or S3. Abdomen is soft. Skin is warm and dry. Urine output is 640 mL. Blood sugar is 252. White count is 27,920, hematocrit 30, platelet count 124,000. Sodium is 131, potassium 4.6, chloride 100, BUN is 63, creatinine 4.5. Ferritin was 5000, iron was 16. AST is 188, ALT is 67, alkaline phosphatase 177. Troponin was 0.414. Albumin 2.6. B12 was 487, folate 8.5. Urinalysis was less than 0.8 on the phenytoin. Ethanol level was zero. Blood gas on arrival showed pH of 7.33, pCO2 of 32, pO2 of 282, lactate level 2.9. CT of the head without contrast with no hemorrhage, stable, anterior meningioma and chronic supratentorial infarct, chronic microvascular ischemic changes. Chest x-ray with no acute disease. Abdominopelvic CT with cholelithiasis, questionable cholecystitis, L3 compression fracture (not present on previous exam), thickening of the wall of the distal esophagus (further workup suggested), splenomegaly, otherwise unremarkable. ASSESSMENT AND PLAN: 1. Diabetic ketoacidosis. Continue fluids as we can. 2. Ywl-[id number]-cpszmov elevation myocardial infarction. 3. Status epilepticus. 4. Upper gastrointestinal bleed possible. 5. Acute kidney injury secondary to diabetic ketoacidosis and poor oral intake. 6. Possible mild acute cholecystitis. 7. Peripheral arterial disease. 8. Splenomegaly of uncertain origin. 9. Esophagitis, probably caused by upper gastrointestinal bleed versus possible neoplasia. 10.Probable sepsis secondary to intraabdominal process, cannot rule out aspiration pneumonia in light of multiple seizures at home. Continue to treat broad spectrum. Review of his orders, I do not see any change. cc: Trevin Dubois MD MTDD
[2018-11-28 10:26] LABS: MAGNESIUM 1.8 mg/dL (1.5-2.7); PHOSPHORUS 2.5 mg/dL (2.7-4.5)
[2018-11-28 10:31] LABS: CALCIUM 7.3 mg/dL (8.8-10.2); CREATININE 4.7 mg/dL (0.7-1.2); POTASSIUM 3.5 mmol/L (3.5-5.1)
[2018-11-28] MEDS: POTASSIUM CHLORIDE 20 MEQ/SWI 20 MEQ/100 ML IVPB IV PRN ×4 (11:46→22:12)
[2018-11-28 12:15] LABS: ALLEN TEST NO; BE -7.1 mmoll (-3.0-3.0); BLOOD TYPE ARTERIAL; HCO3-(ACT) 19.4 mmoll (20.0-26.0); METHB 1.6 % (0.0-1.5); O2(CT) 13.5 mL/dL (15.0-23.0); O2HB 97.2 % (95.0-99.0); PCO2(98.6) 32 mmHg (35-45); PO2(98.6) 270 mmHg (60-100); SAMPLE BLOOD; SAO2 100.4 % (95.0-100.0); THB 9.4 g/dL (11.5-17.4); pH(98.6) 7.35 (7.35-7.45)
[2018-11-28 12:18] LABS: MODALITY NRB
--- NOTE | 2018-11-28 12:44 | ECHO REPORT ---
ORDER DATE: 11/28/2018 INTERPRETING PHYSICIAN: Zackary Lowery MD ECHOCARDIOGRAPHIC MEASUREMENTS: Interventricular septum 1.0 cm. Left ventricular posterior wall 1.0 cm. Diastolic diameter 5.4 cm. Left atrium 3.4 cm. Aorta 3.8 cm. SUMMARY OF THE 2-DIMENSIONAL IMAGING: Technically suboptimal study. Mitral valve leaflets revealed a vegetation noted, probably attached to the posterior mitral valve leaflet. The aortic valve leaflets were trileaflet, mildly sclerosed. Pulmonic valve not well visualized. Tricuspid valve was normal. Peak velocity across the aortic valve less than 2 m/sec. There is no aortic stenosis. There is aortic sclerosis, there is mild aortic regurgitation. Normal left ventricular cavity size. Estimated ejection fraction of 60%. There is mild mitral regurgitation. Mild tricuspid regurgitation. Peak velocity across the tricuspid valve was 2.7 m/sec. There is mild pulmonary regurgitation. CONCLUSIONS: Mobile vegetation noted in the mitral valve suggestive of endocarditis. Would recommend transesophageal echocardiogram if clinically indicated. cc: MD Paulino Melendez MD
[2018-11-28] MEDS: D5 1/2 NS + KCL 10 MEQ 1,000 ML IV SCH ×2 (12:50→23:47)
--- NOTE | 2018-11-28 12:57 | EKG Report ---
Test Performed on : 11/28/2018 07:15:27 AM Test Reason : AFIB Blood Pressure : / mmHG Vent. Rate : 145 BPM Atrial Rate : 044 BPM P-R Int : 000 ms QRS Dur : 092 ms QT Int : 320 ms P-R-T Axes : 000 -04 091 degrees QTc Int : 497 ms Atrial fibrillation. with rapid ventricular response. Nonspecific T wave abnormality Abnormal ECG When compared with ECG of 27-NOV-2018 20:15, (Unconfirmed) Atrial fibrillation. has replaced Sinus rhythm. Confirmed by Timi VALENZUELA, Pelon ([id number]) on 11/29/2018 8:54:35 AM
[2018-11-28] MEDS: HUMULIN R 100 UNIT in NS 99 ML IV SCH (13:48)
[2018-11-28] MEDS ORDERED: KEPPRA 1,000 MG in NS 100 ML IV SCH (14:00)
[2018-11-28 14:06] LABS: MAGNESIUM 1.8 mg/dL (1.5-2.7); PHOSPHORUS 2.2 mg/dL (2.7-4.5)
[2018-11-28 14:14] LABS: CALCIUM 7.5 mg/dL (8.8-10.2); CREATININE 4.8 mg/dL (0.7-1.2); POTASSIUM 3.9 mmol/L (3.5-5.1)
[2018-11-28] MEDS ORDERED: NS 400 ML IV ONE (14:14)
--- NOTE | 2018-11-28 15:48 | CARDIOLOGY CONSULTATION ---
DATE: 11/28/2018 CHIEF COMPLAINT ON PRESENTATION: Multiple seizures, increased lethargy, and confusion. HISTORY OF PRESENT ILLNESS: Mr. Reyez is a 63-year-old white male with a long history of epilepsy, type 2 diabetes, and hypertension. He has been noncompliant with medications apparently including his seizure medications as well as insulin. Family reports that he was having daily seizures for the last week and then apparently the day of presentation yesterday had a couple of back to back seizures and never returned to his baseline per his usual pattern. There have apparently been no complaints of EMS. The reason for calling EMS was the lack of returning to his usual pattern. He was admitted and found to be DKA. He has not had any seizure activity since presentation to the hospital. He is on supplemental oxygen via face mask but is not intubated. He is not requiring any pressors. The patient is not responsive to commands. He does grimace and move slightly to physical stimulation. PAST MEDICAL HISTORY: His past medical history through chart review appears to be consistent with: 1. Diabetes. 2. Epilepsy. 3. History of mitral valve endocarditis treated back in 2013. 4. Anemia. 5. History of C. difficile. SOCIAL HISTORY: Lives at home with family. He is on Disability. Not . Historically, he has been positive for tobacco in the past. Unable to obtain that history presently. FAMILY HISTORY: Unable to be obtained secondary to the patient's current nonresponsive status. REVIEW OF SYSTEMS: Unable to be obtained secondary to the patient's current nonresponsive status. PHYSICAL EXAMINATION: Vital signs: The patient has been febrile documented as high as 102.4. More recently, he has been afebrile. His heart rate is in the low 100s, appears to be in new onset atrial fibrillation per telemetry. His blood pressure is 98/63. General: He is in no acute distress, not responsive to commands. HEENT: Oropharynx is moist. Poor dentition. Eye examination: Conjunctiva white sclera. Neck: His neck examination showed no obvious thyromegaly or thyroid tenderness. Cardiovascular: He is found to be an irregularly irregular rhythm. He has no obvious murmurs. He has a 2/6 systolic murmur that is best heard at the left sternal border upper and lower. He has no S3. He has no lower extremity edema. Extremities: He has warm and well-perfused extremities. Chest: His chest exam sounds relatively clear. He is somewhat tachypneic but has no increased work of breathing. Abdomen: His abdomen is soft. There is no obvious tenderness to palpation to all 4 quadrants. Bowel sounds were heard. Skin: Exam is warm and dry throughout without any rashes. Neurologic and Psychiatric examinations: Not able to be completely performed. He did have minimal grimacing to physical stimulation. He had a CT performed demonstrating no hemorrhage, really no acute changes. He had a chronic right occipital lobe infarct, chronic microvascular ischemic changes. He had a chest x-ray performed showing no evidence of any acute findings. He had an abdomen and pelvis CT suggesting cholelithiasis with questionable cholecystitis, a new L3 compression fracture not present on previous studies, thickening to the distal wall of the distal esophagus, splenomegaly. His electrocardiogram demonstrated what appeared to be probable sinus tachycardia. P waves do seem to be present on the 11/27/2014 EKG. Subsequently, he had an EKG this morning at 7:15, which shows atrial fibrillation at a rate of 145 beats per minute. LABORATORY DATA: His laboratory data shows a white count of 27.9, hematocrit of 30, platelet count of 124. His INR is 1.2. His ABG originally 7.33, pCO2 of 32, pO2 of 282. His lactate level was 2.9. His original anion gap was 25, most recent was 17. Sodium 131, potassium 4.6, BUN 63, creatinine 4.5 today, previously it was 17 and 1.4 back in 2013. His glucose on presentation was 693, most recent was 348. His AST and ALT were 188 and 67 on presentation. Albumin 2.6. His CK was 4475, MB 20.8. His index was 0.5, which is normal. His initial troponin was 0.367, subsequently 0.414. His HDL is 12. His triglycerides are 434. His LDL was not able to be assessed secondary to this. His urinalysis was reviewed. His UDS had a low Dilantin level. His serum alcohol level was negative. ASSESSMENT: Mr. Reyez is a 63-year-old male, who is noncompliant with medications, presented in diabetic ketoacidosis, multiple seizures, acute kidney injury, found to have an elevated troponin with no acute complaints suggesting acute coronary syndrome voiced to family. He is in new onset atrial fibrillation. PLAN: At this point, he is on aspirin which I would continue with. Echocardiogram is pending. He is on rate control in the form of diltiazem that seems to be doing reasonably well. The patient is not a candidate for invasive heart procedures given his acute renal insufficiency. He needs to be resuscitated aggressively. He certainly is concerning for possible infection given his fever, elevated white count, and diabetic ketoacidosis. At this point, we will treat him conservatively and supportive care from a cardiovascular standpoint. Echocardiogram is currently pending. We were unable to assess his long-term candidacy for anticoagulation given his unresponsive status currently as well as his recent history of noncompliance with medications. cc: Remberto Giang MD
[2018-11-28] MEDS ORDERED: CEREBYX IV SCH (16:15)
--- NOTE | 2018-11-28 16:25 | Diag Imaging Result Doc PS360 ---
EXAM: US RENAL 2 (RETROPER) COMPLETE HISTORY: DUNIA TECHNIQUE: Renal ultrasound COMPARISON: None. FINDINGS: The right kidney measures 12.1 x 5.8 x 6.6 cm. No renal stone or hydronephrosis. No renal mass. Normal renal echotexture and cortical thickness. The left kidney is completely obscured. IMPRESSION: Normal right kidney. Electronically signed by Hipolito Kohli 11/28/2018 4:22 PM
[2018-11-28] MEDS: KEPPRA 1,000 MG in NS 100 ML IV SCH ×2 (17:12→23:48)
[2018-11-28] MEDS: CEREBYX 300 MG in NS 50 ML IV SCH (17:12)
[2018-11-28 17:55] LABS: MAGNESIUM 1.8 mg/dL (1.5-2.7); PHOSPHORUS 1.7 mg/dL (2.7-4.5)
[2018-11-28] MEDS ORDERED: NS 500 ML IV ONE (17:58)
[2018-11-28 18:06] LABS: CALCIUM 7.3 mg/dL (8.8-10.2); CREATININE 4.6 mg/dL (0.7-1.2); POTASSIUM 4.1 mmol/L (3.5-5.1)
--- NOTE | 2018-11-28 18:20 | CONSULTATION ---
DATE OF CONSULTATION: 11/28/2018 Mr. Reyez is 63 years old and he presented after reported series of seizures. He has not regained consciousness. History to me by telephone from his mother is that she believes his first seizure was several years ago. She believes he has had extensive workup and that explanation for seizure was not determined. She believes there is no history of serious head injury, stroke, ethanol abuse, illicit drug use, medication errors or other reason for his seizure onset in middle age. She believes that his first seizure medicine was phenytoin. She is not certain when levetiracetam was added. She believes that he takes his medicines regularly at times and misses doses at times. She confirms report provided by family when he presented that he had not been taking medicine for management of blood sugar or for seizure for the last week or so. She believes he was not having problems tolerating his seizure medicine and he decided to stop taking it because of cost concerns. By report, he had several seizures and was brought to the emergency room. He has not regained consciousness. Lab showed blood sugar 693. Liver enzymes are elevated. Sodium is down to 125. WBC count 27,920. Urine drug screen all negative. Noncontrast CT shows anterior falx meningioma which appears to be stable and unchanged compared to 2014 scan. There is area of encephalomalacia in the right occipital lobe which was not noted on prior scan. He had temperature 102.2 degrees earlier but has been afebrile for about 12 hours. Heart rate has ranged 100s-110s and systolic blood pressures 80s-110s. On exam, Mr. Reyez is supine, not responsive. He has some lateral eye movement with passive head turning. There is anisocoria, left pupil about 2 mm larger than the right with uncertain reaction to bright light bilaterally. Corneal reflex is sluggish bilaterally. Limb tone is symmetric. Plantar response is silent bilaterally. Reflexes are absent at the knees and ankles. Neck is supple without meningismus. IMPRESSION: Apparent seizure disorder with onset in middle age, uncertain etiology, possibly related to the falcine meningioma. He presented with marked metabolic problems and those are being addressed. He had not been taking his seizure medicine, by report, and presented with likely status epilepticus. The blood sugar nearly 700 and status epilepticus both carry significant mortality. I tried to explain that to his mother by phone. I do not have any urgent suggestion from neurologic standpoint. We will get EEG as soon as available to make sure he is not having subclinical seizure. We hope to be able to continue controlling seizure with medication. Further plans will depend on his clinical course. Time will tell. Thanks for asking Neurology to see Mr. Reyez. cc: Olvin Sullivan III, MD MTDD
[2018-11-28 21:40] LABS: CALCIUM 7.3 mg/dL (8.8-10.2); CREATININE 5.1 mg/dL (0.7-1.2); POTASSIUM 4.7 mmol/L (3.5-5.1)
[2018-11-28 21:48] LABS: MAGNESIUM 1.8 mg/dL (1.5-2.7); PHOSPHORUS 1.7 mg/dL (2.7-4.5)
[2018-11-28] MEDS ORDERED: LASIX IV ONE (22:06)
[2018-11-28] MEDS ORDERED: LASIX 120 MG in NS 25 ML IV ONE (23:00)
[2018-11-29 00:24] LABS: ALLEN TEST YES; BE -11.1 mmoll (-3.0-3.0); BLOOD TYPE ARTERIAL; HCO3-(ACT) 16.2 mmoll (20.0-26.0); METHB 1.3 % (0.0-1.5); O2(CT) 24.7 mL/dL (15.0-23.0); O2HB 95.8 % (95.0-99.0); PCO2(98.6) 34 mmHg (35-45); PO2(98.6) 106 mmHg (60-100); SAMPLE BLOOD; SAO2 98.8 % (95.0-100.0); THB 18.3 g/dL (11.5-17.4); pH(98.6) 7.25 (7.35-7.45)
[2018-11-29 00:25] LABS: MODALITY VENTIMASK
[2018-11-29 01:19] LABS: CALCIUM 7.5 mg/dL (8.8-10.2); MAGNESIUM 1.9 mg/dL (1.5-2.7); POTASSIUM 4.5 mmol/L (3.5-5.1)
[2018-11-29] MEDS: POTASSIUM CHLORIDE 20 MEQ/SWI 20 MEQ/100 ML IVPB IV PRN ×3 (02:14→11:46)
[2018-11-29] MEDS: NS 1,000 ML IV SCH ×4 (03:09→12:43)
[2018-11-29] MEDS: PROTONIX IV SCH ×2 (03:12→15:07)
[2018-11-29 05:03] LABS: ALLEN TEST YES; BLOOD TYPE ARTERIAL; HCO3-(ACT) 16.4 mmoll (20.0-26.0); METHB 1.7 % (0.0-1.5); O2(CT) 11.8 mL/dL (15.0-23.0); O2HB 96.5 % (95.0-99.0); PCO2(98.6) 27 mmHg (35-45); PO2(98.6) 165 mmHg (60-100); SAMPLE BLOOD; SAO2 99.6 % (95.0-100.0); THB 8.4 g/dL (11.5-17.4); pH(98.6) 7.32 (7.35-7.45)
[2018-11-29 05:04] LABS: BASO# 0.12 X1000 (0.0-0.2); BASO% 0.6 % (0.0-0.8); EOS# 0.06 X1000 (0.0-0.7); EOS% 0.3 % (0.0-10.0); HEMATOCRIT 23.6 % (42.0-52.0); HEMOGLOBIN 8.1 g/dL (14.0-18.0); IMM GRAN# 0.56 X1000 (0.0-0.04); IMM GRAN% 2.7 % (0.0-0.5); LYMPH# 1.45 X1000 (1.2-3.4); LYMPH% 6.9 % (20.5-51.1); MCH 29.1 PG (27-31); MCHC 34.3 g/dL (33-37); MCV 84.9 FL (81-99); MONO% 6.2 % (1.7-9.3); MPV 12.3 FL (7.4-10.4); NEUT# 17.64 X1000 (1.4-6.5); NEUT% 83.3 % (42.2-75.2); PLT 104 X1000 (130-400); RBC 2.78 XMIL (4.7-6.1); RDW 16.5 % (11.5-14.5); WBC 21.13 X1000 (4.8-10.8)
[2018-11-29 05:04] LABS: MODALITY BI PAP
[2018-11-29 05:07] LABS: CALCIUM 7.5 mg/dL (8.8-10.2); CREATININE 5.2 mg/dL (0.7-1.2); MAGNESIUM 1.9 mg/dL (1.5-2.7); POTASSIUM 4.8 mmol/L (3.5-5.1)
[2018-11-29] MEDS: CEREBYX 300 MG in NS 50 ML IV SCH ×2 (05:12→17:37)
[2018-11-29] MEDS: ZOSYN 3.375 GM in NS 50 ML IV SCH ×3 (05:33→17:38)
[2018-11-29 05:37] LABS: LYMPHS 6 % (21-51); MONO 7 % (1-9); SEGS 87 % (42-75)
[2018-11-29] MEDS: CARDIZEM 100 MG/NS 100 MG/100 ML IVPB IV SCH ×2 (05:37→18:09)
--- NOTE | 2018-11-29 06:57 | Diag Imaging Result Doc PS360 ---
EXAM: CHEST-PORTABLE HISTORY: r/o PNA TECHNIQUE: Portable chest single view COMPARISON: 11/27/2018 FINDINGS: Poor inspiratory effort. No cardiomegaly. There are perihilar infiltrates with bronchial wall thickening. No pleural effusions identified. IMPRESSION: Development of perihilar infiltrates/pulmonary edema Electronically signed by Hipolito Kohli 11/29/2018 6:55 AM
--- NOTE | 2018-11-29 07:24 | EKG Report ---
Test Performed on : 11/29/2018 07:01:45 AM Test Reason : chest pain Blood Pressure : / mmHG Vent. Rate : 088 BPM Atrial Rate : 088 BPM P-R Int : 242 ms QRS Dur : 092 ms QT Int : 374 ms P-R-T Axes : 053 028 059 degrees QTc Int : 452 ms Sinus rhythm. with 1st degree AV block. Otherwise normal ECG When compared with ECG of 28-NOV-2018 07:15, (Unconfirmed) Sinus rhythm. has replaced Atrial fibrillation. Vent. rate has decreased BY 57 BPM Nonspecific T wave abnormality no longer evident in Inferior leads Nonspecific T wave abnormality no longer evident in Lateral leads Confirmed by Timi VALENZUELA, Pelon ([id number]) on 11/29/2018 8:59:15 AM
[2018-11-29] MEDS: KEPPRA 1,000 MG in NS 100 ML IV SCH ×2 (09:04→17:20)
[2018-11-29] MEDS: D5 1/2 NS + KCL 10 MEQ 1,000 ML IV SCH ×2 (09:06→17:38)
[2018-11-29] MEDS: ASPIRIN PR SCH (09:06)
[2018-11-29 10:30] LABS: CALCIUM 7.5 mg/dL (8.8-10.2); CREATININE 5.2 mg/dL (0.7-1.2); MAGNESIUM 1.8 mg/dL (1.5-2.7); POTASSIUM 4.8 mmol/L (3.5-5.1)
--- NOTE | 2018-11-29 12:20 | PROGRESS NOTE ---
DATE: 11/29/2018 Mr. Reyez has not had any definite clinically recognized seizure in the last 24 hours. He does not seem significantly changed clinically from a neurologic standpoint. He continues intubated, mechanically ventilated, poorly responsive. There is slight lateral eye movement to the right and to the left with passive head turning. Corneal reflexes are present bilaterally. Facial motility is symmetric. Limb tone remains symmetric. Plantar response is silent bilaterally. There is a little bit of leg withdrawal with stroking the sole bilaterally. Anisocoria is unchanged since yesterday, left pupil about 2 mm larger than the right with no definite reaction to bright light bilaterally. IMPRESSION: Persistent unresponsiveness with question of ictal or postictal state, toxic or metabolic encephalopathy. Status epilepticus. Meningioma. Anisocoria is noted, but appears to be old and may not be related to his current illness. Extreme hyperglycemia on presentation. PLAN: EEG will begin shortly to look for evidence of subclinical seizure as possible explanation for his persistent poor responsiveness. Further plans will depend on that report and on his clinical course. We might need to consider further imaging. Thanks for asking Neurology to see Mr. Reyez. I discussed my thoughts briefly with mother at the bedside this morning. cc: MD ALBERTA Rivera III
--- NOTE | 2018-11-29 12:26 | PROGRESS NOTE ---
DATE: 11/29/2018 ADDENDUM: He had an echocardiogram with Doppler on 11/28. There is a mobile vegetation noted on the mitral valve suggestive of endocarditis and suggesting BRIAN. We will consult Dr. Haynes. Dr. Giang I think is already on the case. The patient is currently on antibiotics, broad spectrum piperacillin 3.375 g IV q.6. Not sure if we should add for gram-positive. We will see what Dr. Haynes wants to do. cc: Trevin Dubois MD
--- NOTE | 2018-11-29 12:28 | PROGRESS NOTE ---
DATE: 11/29/2018 SUBJECTIVE: Mr. Reyez has not had any urine output, is very lethargic this morning. OBJECTIVE: Vital signs: Temperature 97 degrees, pulse 87, respirations 29, blood pressure 97/56. HEENT: Pupils are equal round. Lungs: clear in all lung benitez. Cardiovascular: Regular rhythm and rate without murmur or S3. Genitourinary: Urine output is 7 L. LABORATORY DATA: Blood sugar 181, 209, 223. IMAGING: Chest x-ray, development of perihilar infiltrates and pulmonary edema. ASSESSMENT AND PLAN: 1. Apparent seizure disorder with onset, middle-age. Dr. Sullivan is following, uncertain etiology, possibly related to a falcine meningioma. So, continue his present treatment. He presented with likely status epilepticus. Blood sugar was 700 and I think attempt to get an EEG when we can. 2. Look at echocardiogram. He presented with diabetic ketoacidosis, seizure, probably status epilepticus and had acute kidney injury. He has poor urine output. We have tried to increase the fluid, but he looks like he has some pulmonary venous hypertension. Dr. Hernandez will evaluate as well. Concerned we are heading into acute tubular necrosis. Creatinine is 5.2, sodium is 133, potassium 4.8, bicarb 15, BUN 73. 3. Diabetes mellitus type 2. Blood sugars have been in the 200s, 248, 222, 268, 223. 4. History of mitral valve endocarditis. I will ask Dr. Haynes to help with that. Apparently found vegetations on echo. 5. Atrial fibrillation with rapid ventricular rate. 6. Presented with sepsis. 7. Continue to watch his blood counts. Has anemia. He did have some melena or rectal bleeding, so we will watch his blood count and transfuse as necessary. Hemoglobin is 8.1, hematocrit 23. REVIEW OF HIS ORDERS: I do not see any change at this point. cc: Trevin Dubois MD
[2018-11-29] MEDS: HUMULIN R 100 UNIT in NS 99 ML IV SCH (12:29)
[2018-11-29 13:02] LABS: ALLEN TEST YES; BLOOD TYPE ARTERIAL; HCO3-(ACT) 16.4 mmoll (20.0-26.0); METHB 0.9 % (0.0-1.5); O2(CT) 11.6 mL/dL (15.0-23.0); O2HB 97.1 % (95.0-99.0); PCO2(98.6) 27 mmHg (35-45); PO2(98.6) 115 mmHg (60-100); SAMPLE BLOOD; SAO2 99.6 % (95.0-100.0); THB 8.3 g/dL (11.5-17.4); pH(98.6) 7.32 (7.35-7.45)
[2018-11-29 13:03] LABS: MODALITY BI PAP
--- NOTE | 2018-11-29 14:09 | CARDIOLOGY PROGRESS NOTE ---
DATE: 11/29/2018 SUBJECTIVE: Mr. Reyez is requiring a higher oxygen support level this morning. He is not responsive to physical or verbal stimuli. He is presently on BiPAP. PHYSICAL EXAMINATION: The patient is afebrile. Last T-max was 102.2 degrees in the advisor advocate angel co founder hours of the . Heart rate is in the 80s, blood pressure 97/56.Generally: No acute distress. Cardiovascular: He sounds to be in a regular rate and rhythm. Telemetry currently shows sinus he has no lower extremity edema. Chest: Clear bilaterally. He has no increased work of breathing. Abdomen: Soft, nontender, nondistended. He has no obvious organomegaly. Skin: Warm and dry throughout without any rashes. Neurological: Moving all extremities well. He has no lateralizing deficits. PERTINENT DATA: His chest x-ray today shows development of perihilar infiltrates with pulmonary edema. His lab data shows a white count of 21. Hematocrit of 23. His platelet count is 104,000. He has a left shift. His sodium is 133, potassium 4.8, BUN is 73, creatinine is 5.2 which has slowly worsened from presentation. His Mag level is 1.8. His echocardiogram yesterday demonstrating a normal ejection fraction of 60%. He has a vegetation that seemingly is attached to the posterior mitral valve leaflet. His micro data shows gram-positive cocci in the urine as well as the blood from the cultures on the . ASSESSMENT: Mr. Reyez is a 63-year-old gentleman who presented with seizures, diabetic ketoacidosis, respiratory failure and seems to have Gram positive cocci in both urine and blood. He presumably has mitral valve endocarditis as well. PLAN: We need to make sure that the patient has a nephrology consult ordered. He has very little urine output. His renal function is worsening. He is not a candidate for transesophageal echo at this point, and needs to continue with antibiotics for his presumed mitral valve endocarditis. Dr. Haynes has been consulted. At this point, I do not have any acute recommendations. He has converted out of atrial fibrillation into sinus rhythm. cc: Remberto Giang MD
[2018-11-29] MEDS ORDERED: LASIX IV ONE (14:30)
--- NOTE | 2018-11-29 15:10 | NEPHROLOGY CONSULTATION ---
DATE: 11/29/2018 REASON FOR CONSULTATION: Acute kidney injury. HISTORY OF PRESENT ILLNESS: Mr. Reyez is a 63-year-old white male who is not able to provide any history. He was brought into the emergency room because of repeated seizure activity and incomplete recovery neurologically in between seizures. He has a known history of seizure disorder and he has been treated for this. His seizures have been worse recently. His initial evaluation in the emergency room disclosed evidence of diabetic ketoacidosis. His initial pH was 7.26 with pCO2 of 28 on room air, venous gas. His initial anion gap was 25 and his acetone was not measured in the blood, though it was trace in the urine. In this context, he was treated for DKA. He was also treated for status epilepticus, upper GI bleeding, and possible sepsis. He received empiric broad-spectrum antibiotics including Zosyn. He was treated with aggressive IV fluid resuscitation using normal saline as well as 2 amps of IV bicarbonate. In this context, he has had very low urine output and his blood pressure has been low. Lowest blood pressure documented was 58/43 and he spent an extended amount of time in the 80s and 70s. He was treated with IV Cardizem but has not required IV vasopressor support. He is net positive over 8 L. In this context, his creatinine on presentation was 4.2 and has risen progressively to 5.2. The last creatinine in the system was 1.4 back in 2014. He has not received IV contrast. Imaging demonstrates a small left kidney. Right kidney has no obstruction and is 12.1 cm in length. PAST MEDICAL HISTORY: Includes seizure disorder, diabetes, hypertension. HOME MEDICATIONS: Include atenolol, simvastatin, amitriptyline, phenytoin, metformin, levetiracetam, glyburide, hydrocodone, iron, polyethylene glycol. ALLERGIES: None. SOCIAL HISTORY: He lives with his mother. He is not . No alcohol or tobacco according to the chart. FAMILY HISTORY: Otherwise not obtainable. REVIEW OF SYSTEMS: Otherwise not obtainable. PHYSICAL EXAMINATION: Vital Signs: Blood pressure 100/58, heart rate 85, respirations 30, afebrile. General: He is a middle-aged man, unresponsive, on BiPAP. Skin: Warm and dry. Somewhat pale. HEENT: Pupils are unequal, left greater than right. Left is irregular. Oropharynx is dry. Neck: Supple. Neck vein distention is not visible. Heart: Difficult to auscultate. Lungs: Have diffuse rhonchi and crackles. Abdomen: Soft, nontender. Bowel sounds are diminished. No organomegaly or masses. Extremities: There is 1+ edema. No clubbing or cyanosis. He has ulcers on the feet that are dry. Very poor capillary refill and distal pulses are difficult to palpate. IMPRESSION: Acute kidney injury. Presumed. Presumably ATN overlying ischemic nephropathy with asymmetrical kidneys. He has had adequate volume resuscitation so I will stop his fluids at this point. I will give a single dose of furosemide 200 mg but he is unlikely to respond. I counseled the family regarding the severity of his illness and its relationship to his other acute illness. I explained that he may require hemodialysis for management of his acute kidney injury. They understand and are agreeable to access placement and hemodialysis. Though he meets criteria for dialysis, he does not necessarily need urgent dialysis so we will wait at the discretion of the surgeons to initiate treatment. cc: Javier Hernandez MD
--- NOTE | 2018-11-29 15:35 | INFECTIOUS DISEASE CONSULT REP ---
DATE: 11/29/2018 CONCLUSION: The patient has a gram-positive coccal bacteremia and urinary tract infection. On echocardiogram, he appears to have a mitral valve vegetation, therefore would appear that he has endocarditis. 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 RECOMMENDATIONS: The patient has developed renal failure. Sometime this afternoon he is going to have a tunneled dialysis catheter implanted. What I have done is ordered that the patient get one dose now of daptomycin and also I have ordered vancomycin 1 g to be given IV after each dialysis. DISCUSSION: The patient is unable to give me a history. No family members present. He was admitted to the hospital in diabetic ketoacidosis. As mentioned above, his blood and urine cultures are growing gram-positive cocci. His CBC shows a white count of 21,130, hemoglobin 8.1 and platelet count 104,000. Blood gases show a pH of 7.32, a pO2 of 115, a pCO2 of 27. Creatinine is 5.2. GFR is 11. Chest x-ray shows perihilar infiltrate/pulmonary edema. Renal ultrasound shows a right normal kidney and the left one was obscured. The patient does have a history of an atrophic left kidney. The patient also has a history of Clostridium difficile infection, acute renal failure, seizure disorder, hypertension, hyperlipidemia, diabetes with diabetic ketoacidosis. PHYSICAL EXAMINATION: Vital Signs: Temperature is 98, pulse 85, respirations 30, blood pressure 100/58. The patient is 6 feet tall and weighs 224 pounds. General: This is an ill-appearing middle-aged male. He has a decreased level of consciousness. Head, Eyes, Ears, Nose and Throat: Patient is wearing a BiPAP mask. I do not see any drainage coming from his nose or ears. Neck: There is no meningismus. Lungs: Clear to auscultation. Cardiovascular: Heart rate is regular. Abdomen: Soft and apparently not tender. Neurologic: The patient is obtunded. He did not respond to verbal stimuli. There was no tremor. Integument: No rash. Extremities: The patient has necrosis of the right great toe. The left great toe has some eschars on it. The left foot also has an area medially of gangrene. Thank you for the consult. cc: Colin Haynes MD [facility]
[2018-11-29] MEDS ORDERED: CUBICIN 600 MG in NS 100 ML IV ONE (16:00)
[2018-11-29] MEDS ORDERED: LASIX 200 MG in NS 25 ML IV ONE (16:00)
[2018-11-29 16:10] LABS: CALCIUM 7.7 mg/dL (8.8-10.2); POTASSIUM 5.4 mmol/L (3.5-5.1)
[2018-11-29] MEDS ORDERED: VANCOMYCIN 1 GM/NS 1 GM/250 ML IVPB IV SCH (17:00)
[2018-11-29 18:06] LABS: CALCIUM 7.8 mg/dL (8.8-10.2); CREATININE 6.2 mg/dL (0.7-1.2); MAGNESIUM 1.9 mg/dL (1.5-2.7); POTASSIUM 5.4 mmol/L (3.5-5.1)
--- NOTE | 2018-11-29 19:52 | OPERATIVE NOTE ---
PROCEDURE DATE: 11/29/2018 PREOPERATIVE DIAGNOSIS: Acute kidney injury. POSTOPERATIVE DIAGNOSIS: Acute kidney injury. PROCEDURE: Insertion of central venous dialysis catheter with ultrasound guidance. SURGEON: Bj Brantley MD. ESTIMATED BLOOD LOSS: Scant. COMPLICATIONS: None apparent. FINDINGS: The right internal jugular vein was visualized with ultrasound and found to be compressible and patent without thrombus. TECHNIQUE: The patient was kept supine in his ICU bed. His right neck was prepped and draped in the usual sterile fashion. Under ultrasound guidance, the right internal jugular vein was accessed with a needle and syringe, drawing back dark nonpulsatile blood. The wire passed through the needle easily. The track was dilated, and a dual-lumen Mahurkar dialysis catheter was passed over the wire into the vein via the Seldinger technique. The ports chani back blood easily and were flushed with saline easily. The port ends were capped, and the port was anchored to the skin with nylon suture. A sterile dressing was applied. There were no apparent complications. cc: Bj Brantley MD
--- NOTE | 2018-11-29 20:03 | Diag Imaging Result Doc PS360 ---
EXAM: CHEST-PORTABLE INDICATION: s/p cvl placement TECHNIQUE: One view COMPARISON: 11/29/2018 FINDINGS: The newly placed jugular line on the right is identified. The tip projects over the region of the atriocaval junction. There is no evidence of pneumothorax. Otherwise, the chest is stable as compared to the earlier study performed today. IMPRESSION: Newly placed central line as described with no evidence of pneumothorax postplacement. Electronically signed by Juan Dia 11/29/2018 8:01 PM
[2018-11-29 21:10] LABS: ALLEN TEST YES; BLOOD TYPE ARTERIAL; HCO3-(ACT) 16.4 mmoll (20.0-26.0); METHB 1.7 % (0.0-1.5); O2(CT) 10.7 mL/dL (15.0-23.0); PCO2(98.6) 29 mmHg (35-45); PO2(98.6) 105 mmHg (60-100); SAMPLE BLOOD; SAO2 99.2 % (95.0-100.0); THB 7.8 g/dL (11.5-17.4)
[2018-11-29 21:11] LABS: MODALITY BI PAP
[2018-11-29 21:39] LABS: CALCIUM 7.6 mg/dL (8.8-10.2); CREATININE 6.1 mg/dL (0.7-1.2); MAGNESIUM 1.9 mg/dL (1.5-2.7); POTASSIUM 5.2 mmol/L (3.5-5.1)
--- NOTE | 2018-11-29 22:54 | PROVIDER PROGRESS NOTE ---
Progress Note SUBJECTIVE: AMS unchanged. He continues to do poorly; now requiring Bipap. OBJECTIVE: Last Vital Signs Temp 97.3 F L 11/29/18 20:00 Pulse 87 11/29/18 21:01 Resp 28 H 11/29/18 21:01 BP 108/54 11/29/18 21:01 Pulse Ox 100 11/29/18 21:01 Height 6 ft Weight 224 lb 8 oz GEN: obtunded, nonresponsive to noxious stimuli HEENT: anicteric NECK: supple, no jvd CV: RRR, no murmurs PULM: increased WOB, on BiPAP EXT: No c/c/e. Multiple foot ulcers bilaterally SKIN: scattered UE ecchymoses and abrasions NEURO: nonresponsive LABS: 11/29/18 11/29/18 01:01 04:20 WBC 21.13 H Hgb 8.1 L D Plt Count 104 L Sodium 139 Potassium 4.5 Carbon Dioxide 15 L BUN 71 H Creatinine 5.0 H Glucose 193 H A/P: Mr. Antonio Reyez is a 63 year old man with history of siezure disorder, HTN, DM2, h/o MV endocarditis, h/o cdiff who presented with seizures and AMS found to have DKA, DUNIA, afib with RVR, sepsis with GPC bacteremia and MV vegetation consistent with endocarditis. GI was consulted to evaluate for possible GI bleed. Hgb is 8.1 without overt bleeding. He is having worsening oliguric DUNIA. 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 Please call back prior to discharged to arrange for EGD or if patient develops overt bleeding
[2018-11-29] MEDS ORDERED: AMIDATE ONE (23:28)
[2018-11-29] MEDS ORDERED: DIPRIVAN 1% 1,000 MG/100 ML BOTTLE ONE (23:42)
[2018-11-29] MEDS: DIPRIVAN 1% 1,000 MG/100 ML BOTTLE IV SCH (23:51)
[2018-11-30] MEDS ORDERED: LASIX IV ONE (00:12)
[2018-11-30] MEDS: ZOSYN 3.375 GM in NS 50 ML IV SCH ×4 (01:15→18:35)
[2018-11-30] MEDS: KEPPRA 1,000 MG in NS 100 ML IV SCH ×3 (01:15→16:30)
[2018-11-30 01:35] LABS: MAGNESIUM 1.9 mg/dL (1.5-2.7); PHOSPHORUS 1.8 mg/dL (2.7-4.5)
[2018-11-30 02:07] LABS: CALCIUM 7.8 mg/dL (8.8-10.2); CREATININE 6.5 mg/dL (0.7-1.2); POTASSIUM 5.3 mmol/L (3.5-5.1)
[2018-11-30 02:34] LABS: ALLEN TEST YES; BE -12.3 mmoll (-3.0-3.0); BLOOD TYPE ARTERIAL; HCO3-(ACT) 15.4 mmoll (20.0-26.0); METHB 1.2 % (0.0-1.5); O2(CT) 11.9 mL/dL (15.0-23.0); O2HB 97.1 % (95.0-99.0); PCO2(98.6) 28 mmHg (35-45); PO2(98.6) 125 mmHg (60-100); SAMPLE BLOOD; SAO2 99.5 % (95.0-100.0); SRATE 14 BPM; THB 8.5 g/dL (11.5-17.4); TVOL 500 mL; pH(98.6) 7.28 (7.35-7.45)
[2018-11-30 02:36] LABS: MODALITY VENTILATOR
[2018-11-30] MEDS: D5 1/2 NS 1,000 ML IV SCH (03:29)
[2018-11-30] MEDS: PROTONIX IV SCH ×2 (03:32→14:54)
[2018-11-30 04:55] LABS: ALLEN TEST YES; BE -13.7 mmoll (-3.0-3.0); BLOOD TYPE ARTERIAL; HCO3-(ACT) 14.3 mmoll (20.0-26.0); O2HB 97.6 % (95.0-99.0); PCO2(98.6) 27 mmHg (35-45); PO2(98.6) 157 mmHg (60-100); SAMPLE BLOOD; SRATE 14 BPM; TVOL 500 mL; pH(98.6) 7.26 (7.35-7.45)
[2018-11-30 04:56] LABS: MODALITY VENTILATOR
[2018-11-30] MEDS: CEREBYX 300 MG in NS 50 ML IV SCH ×2 (05:17→17:22)
[2018-11-30 05:20] LABS: BASO# 0.05 X1000 (0.0-0.2); BASO% 0.2 % (0.0-0.8); EOS# 0.14 X1000 (0.0-0.7); EOS% 0.7 % (0.0-10.0); HEMATOCRIT 22.5 % (42.0-52.0); HEMOGLOBIN 7.5 g/dL (14.0-18.0); IMM GRAN# 0.48 X1000 (0.0-0.04); IMM GRAN% 2.4 % (0.0-0.5); LYMPH% 8.3 % (20.5-51.1); MCH 28.4 PG (27-31); MCHC 33.3 g/dL (33-37); MCV 85.2 FL (81-99); MONO# 1.25 X1000 (0.11-0.59); MONO% 6.1 % (1.7-9.3); MPV 12.1 FL (7.4-10.4); NEUT# 16.77 X1000 (1.4-6.5); NEUT% 82.3 % (42.2-75.2); PLT 159 X1000 (130-400); RBC 2.64 XMIL (4.7-6.1); RDW 17.3 % (11.5-14.5); WBC 20.39 X1000 (4.8-10.8)
[2018-11-30 05:35] LABS: MAGNESIUM 1.9 mg/dL (1.5-2.7); PHOSPHORUS 1.8 mg/dL (2.7-4.5)
[2018-11-30 05:49] LABS: LYMPHS 9 % (21-51); MONO 7 % (1-9); SEGS 84 % (42-75)
[2018-11-30] MEDS ORDERED: NS 2,000 ML MISC PRN (05:56)
[2018-11-30 06:05] LABS: CALCIUM 7.8 mg/dL (8.8-10.2); CREATININE 6.1 mg/dL (0.7-1.2); POTASSIUM 5.5 mmol/L (3.5-5.1)
[2018-11-30] MEDS: DIPRIVAN 1% 1,000 MG/100 ML BOTTLE IV SCH (06:05)
--- NOTE | 2018-11-30 07:00 | Diag Imaging Result Doc PS360 ---
EXAM: CHEST-PORTABLE 11/29/2018 HISTORY: et tube placement TECHNIQUE: AP portable at 2346 COMMENT: There is an endotracheal tube with its tip of the thoracic inlet and a right internal jugular catheter with its tip in the superior vena cava. The inspiration is somewhat suboptimal in the left hemidiaphragm is particularly elevated. There is ill-defined parahilar opacity bilaterally particularly in the left upper lobe. Overall this has not changed appreciably since the previous study of this date at 1826. IMPRESSION: Pulmonary edema versus pneumonia particularly in the left upper lobe. Electronically signed by Sedrick Gil 11/30/2018 6:57 AM
--- NOTE | 2018-11-30 07:17 | NEPHROLOGY PROGRESS NOTE ---
DATE: 11/30/2018 SUBJECTIVE: He is now on the ventilator and sedated. OBJECTIVE: Vital Signs: Blood pressure 89/52, heart rate 83, respirations 20, afebrile. Intake 3 L, output 0. General: No acute distress. He does have increased respiratory rate. Skin: Warm and dry. Conjunctivae are pink. Oropharynx is dry. Neck veins are not visible. Heart: Regular. Lungs: Equal. No crackles. Lungs exam is much more clear than yesterday. Abdomen: Soft, nontender. Bowel sounds present. Extremities: 2+ edema. No clubbing or cyanosis. IMPRESSION AND PLAN: Acute kidney injury. Anuric. We will initiate SLED today to address his hyperkalemia, metabolic acidosis, uremia, volume status, 8 hour treatment using a 4 K bath with a goal of 4 L ultrafiltration. cc: Javier Hernandez MD
[2018-11-30] MEDS: ASPIRIN PR SCH (08:06)
[2018-11-30] MEDS: NAFCIL 2 GM in NS 100 ML IV SCH ×5 (08:30→23:08)
--- NOTE | 2018-11-30 08:43 | INFECTIOUS DISEASE PROGRESS NO ---
DATE: 11/30/2018 PRESENT ILLNESS: The patient has a Staph aureus mitral valve endocarditis, pneumonia, and urinary tract infection. MEDICATIONS: The patient had a dose of daptomycin last night and I ordered vancomycin to be given after each dialysis. However, since the patient's Staph aureus organism is oxacillin-sensitive, I have discontinued vancomycin and started the patient on nafcillin 2 g IV every 4 hours. PHYSICAL EXAMINATION: Vital Signs: Temperature is 99 degrees, pulse 83, respirations 24, blood pressure 89/52. General: This is an ill-appearing middle-aged male. He has is intubated and sedated. Head/eyes/ears/nose/throat: He has an orotracheal tube in place. There is no drainage from the nose or ears. Neck: There did not appear to be any pain when I moved the patient's neck. He does have a right-sided internal jugular vein dialysis catheter in place, which was put there last night by Dr. Brantley Lungs: Bilateral rhonchi. Cardiovascular: Heart rate is regular. I did not hear a murmur. Abdomen: Soft and apparently not tender. Extremities: He has gangrenous changes on both of his feet. Neurologic: The patient is obtunded. There is no tremor. Integument: No rash noted. LAB AND X-RAY: Chest x-ray shows bilateral opacities that could well be pneumonia; however, in the upper the lobe, it could be pneumonia versus pulmonary edema. The patient's blood cultures are growing oxacillin sensitive Staph aureus. Urine culture is growing a gram-positive coccus, but it has not been identified yet. Creatinine 6.1, GFR is 9. The patient's blood gases show a pH of 7.28, and a PO2 of 125, and a pCO2 of 28. [place] [address], hemoglobin 7.5, and platelet count 159,000. ASSESSMENT AND PLAN: The patient has oxacillin sensitive Staph aureus endocarditis with associated pneumonia and urinary tract infection. I plan to treat the patient for 6 weeks with IV nafcillin. COMORBIDITIES: Include he has diabetes mellitus. He also has a seizure disorder. He now is in renal failure as well. cc: Colin Haynes MD
--- NOTE | 2018-11-30 09:25 | EEG REPORT ---
DATE: 11/28/2018 ELECTROENCEPHALOGRAM NUMBER: [id number] done on 11/29/2018. COMMENT: This is a digitally recorded EEG done portably in the ICU on a 63-year-old patient with persistent poor responsiveness, presenting with extreme high blood sugar and likely status epilepticus. FINDINGS: Respirator artifact is present throughout the record and does not hinder interpretation. There is low-amplitude polymorphic and rhythmic theta, mostly 4-6 Hz across the frontal and central regions, sometimes a little bit higher amplitude on the left. No sustained posterior dominant rhythm is identified. There was no spontaneous variation to correlate with drowsing and sleep. Photic stimulation did not significantly alter the record. No epileptiform discharge was identified, and no electrographic seizure was recorded. INTERPRETATION: Abnormal EEG because of generalized low-amplitude slowing. CORRELATION: This is indicative of a diffuse encephalopathy and is nonspecific. The absence of epileptiform discharges does not exclude a clinical diagnosis of seizure, but there is nothing on this record to suggest subclinical seizure as the reason for his persistent poor responsiveness. cc: MD SAMANTHA Rivera IIID
--- NOTE | 2018-11-30 09:26 | CARDIOLOGY PROGRESS NOTE ---
DATE: 11/30/2018 SUBJECTIVE: He is sedated. He has been intubated overnight. OBJECTIVE: He is afebrile. His heart rate is 83. Blood pressure 89/52. Most systolics have been in the 90s to low 100s. Generally he is in no acute distress. Cardiovascular: He sounds to be in a regular rate and rhythm. He has no obvious murmurs. He has no S3. He has no lower extremity edema. His chest exam has coarse breath sounds somewhat diffusely. No increased work of breathing. Abdomen is soft, nontender. PERTINENT DATA: Chest x-ray demonstrates pulmonary edema versus pneumonia, particularly noted in the left upper lobe. His white count is 20, hematocrit 22, which has continued to drop. His platelet count is 159,000. He has a left shift. Sodium is 137, potassium is 5.5, BUN 83, creatinine 6.1 which continues to escalate. ASSESSMENT: Mr. Reyez is a 63-year-old gentleman who presented with seizures, lethargy, confusion. He was found to be in diabetic ketoacidosis, acute kidney injury, sepsis. Also had episodes of atrial fibrillation. He is suspected mitral valve endocarditis as well. PLAN: Patient has been initiated on dialysis he has very little urine output at this point. He is on antibiotics. I do not have any acute cardiovascular recommendations at this time. If he recovers we may need to consider transesophageal echo to further evaluate the vegetation adherent to the mitral valve. Presently no acute recommendations. cc: Remberto Giang MD
--- NOTE | 2018-11-30 09:31 | PROGRESS NOTE ---
DATE: 11/30/2018 SUBJECTIVE: Mr. Reyez is on dialysis at the present time. OBJECTIVE: Vital Signs: He remains afebrile, temperature 98.3 degrees, pulse 83, respiration rate 24, and blood pressure 89/52. HEENT: Pupils are equal and round. Lungs: Clear anterolateral. Cardiovascular: Regular rhythm and rate without murmur or S3. Abdomen: Soft. Skin: Warm and dry. DATA: Urine output is 4700 mL. Blood sugar 209, 217, 236. ASSESSMENT AND PLAN: 1. Treating for endocarditis. Continue broad-spectrum antibiotics. He has an oxacillin- sensitive Staphylococcus aureus or apparently in the past. Dr. Haynes is following Staphylococcus aureus mitral valve endocarditis, pneumonia, urinary tract infection. He is on daptomycin and will get vancomycin with each dialysis. However, since the patient had a Staphylococcus aureus organism, apparently it was oxacillin sensitive, and he had been started on nafcillin 2 grams intravenously every 4 hours. 2. Acute kidney injury, suspect acute tubular necrosis. We started sustained low-efficiency dialysis (SLED) treatment and continue that as needed daily. Follow electrolytes and acid base status. 3. Hematocrit 22, hemoglobin 7.5, with a mean corpuscular volume of 85. 4. The patient is postictal from a seizure, not on an antiepileptic at this time. 5. Questionable acute cholecystitis, abnormal liver function tests. 6. Esophageal wall thickening. Suspect esophagitis. 7. Came in with diabetic ketoacidosis and acidosis and seems to have improved. 8. Diabetic foot ulcers. Continue topical care. REVIEW OF ORDERS: Aspirin 300 mg a day, fosphenytoin 300 mg IV every 12, levetiracetam 1000 mg IV every 8 hours, nafcillin 2 grams IV every 4 hours. Potassium chloride 40 mEq was given yesterday. Daptomycin 600 mg 1 dose yesterday. cc: Trevin Dubois MD
--- NOTE | 2018-11-30 09:56 | PROGRESS NOTE ---
DATE: 11/30/2018 SUBJECTIVE: Mr. Reyez has been intubated and now mechanically ventilated, sedated with propofol. OBJECTIVE: Neurologically, there has not been any significant change. He has lateral eye movement with passive head turning. He has symmetric limb tone. Plantar response is silent bilaterally. The EEG yesterday showed generalized slowing with no evidence of seizure to explain his persistent unresponsiveness. PLAN: I do not have any new thoughts or new suggestions from Neurology standpoint. He presented with extreme hyperglycemia and likely status epilepticus, off his seizure medicines. Each of these problems has significant mortality risk. There may be a brain injury associated with either of these. 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 Thanks for asking Neurology to see Mr. Reyez. cc: Olvin Sullivan III, MD
[2018-11-30 09:57] LABS: CALCIUM 7.4 mg/dL (8.8-10.2); CREATININE 6.2 mg/dL (0.7-1.2); POTASSIUM 5.7 mmol/L (3.5-5.1)
[2018-11-30 10:00] LABS: MAGNESIUM 1.9 mg/dL (1.5-2.7)
--- NOTE | 2018-11-30 12:44 | GASTROENTEROLOGY PROGRESS NOTE ---
DATE: 11/30/2018 SUBJECTIVE: Resting in bed. He is getting dialysis today. As per the patient's nurse, the patient is intubated and vented. According to the nursing staff, the patient has a low-grade temperature of 99 degrees, this morning, but no evidence of any active gastrointestinal bleeding. OBJECTIVE: Vital signs: Temperature of 99.2 degrees, pulse rate of 90, respiratory rate 26, blood pressure 93/57, saturating 100% on mechanical ventilator 40% FiO2. General Appearance: Moderately built, moderately nourished, lying in bed, currently intubated and vented and sedated with IV propofol. HEENT: Positive pallor. Positive ET tube in place. Neck: Supple. Abdomen: Nondistended. Extremities: No cyanosis, clubbing. Neurological: He is sedated. DIAGNOSTIC STUDIES: His hemoglobin 7.5, hematocrit 22.4, white count of 20.3, platelet count of 159,000. ABG showing pH of 7.28, pCO2 of 28, PO2 of 125, this is on ventilator at 40% FiO2. Sodium 138, potassium 5.7, chloride 112, bicarbonate of 12, anion gap of 14, BUN of 85, creatinine, glucose of 224, calcium is 7.4, phosphorus 2.0, magnesium 1.9. Last time his liver enzymes were checked was on 11/27/2018 which showed total bilirubin is 1.26, AST 188, ALT 67, alkaline phosphatase is 177. Sputum culture is currently pending from yesterday. Urine culture showed gram-positive cocci. Stool for occult blood was done on 11/27/2018, which was negative. Blood culture x1 showed Staphylococcus aureus. Emesis on 11/27/2018 was positive Gastroccult. IMPRESSION AND PLAN: 1. Sepsis, secondary to mitral valve endocarditis. He is on antibiotics per Infectious Disease. 2. Altered mental status. Being monitored by the primary team. Neurology is on board. 3. Elevated liver enzymes. There is a question of acute cholecystitis. We will continue to watch liver enzymes. We will recheck them tomorrow. 4. Anemia. We will watch for now. Continue Protonix IV b.i.d. He will need to be transfused if his hematocrit keeps on dropping. He is on dialysis so we will leave to the discretion of the Nephrology team. 5. Renal failure. He is starting dialysis today. 6. Esophageal wall thickening. Suspect esophagitis. Continue on PPIs b.i.d. 7. We will consider esophagogastroduodenoscopy once his mental status and overall clinical status improve. 8. Diabetic foot ulcers. Aware. 9. Diabetic ketoacidosis. Aware. Being by managed primary care team. 10. Seizures. Being managed by primary care team. 11. Staphylococcus aureus sepsis. He is on antibiotics per the primary team. Above plan of care was discussed with the patient's nurse at bedside, and all questions were answered. Please call us with any further questions. cc: MD Trevin Mann MD MTDD
[2018-11-30 13:09] LABS: CALCIUM 7.9 mg/dL (8.8-10.2); CREATININE 3.3 mg/dL (0.7-1.2); POTASSIUM 4.9 mmol/L (3.5-5.1)
[2018-11-30 13:13] LABS: MAGNESIUM 1.8 mg/dL (1.5-2.7); PHOSPHORUS 1.4 mg/dL (2.7-4.5)
[2018-11-30 13:43] LABS: ALLEN TEST YES; BE -7.2 mmoll (-3.0-3.0); BLOOD TYPE ARTERIAL; HCO3-(ACT) 19.3 mmoll (20.0-26.0); METHB 1.8 % (0.0-1.5); O2(CT) 11.3 mL/dL (15.0-23.0); O2HB 96.3 % (95.0-99.0); PCO2(98.6) 30 mmHg (35-45); PO2(98.6) 137 mmHg (60-100); SAMPLE BLOOD; SAO2 99.3 % (95.0-100.0); SRATE 14 BPM; THB 8.1 g/dL (11.5-17.4); TVOL 500 mL; pH(98.6) 7.37 (7.35-7.45)
[2018-11-30 13:44] LABS: MODALITY VENTILATOR
[2018-11-30] MEDS: HUMULIN R SUBQ SCH ×2 (17:00→20:02)
[2018-11-30 17:26] LABS: MAGNESIUM 1.8 mg/dL (1.5-2.7); PHOSPHORUS 2.1 mg/dL (2.7-4.5)
[2018-11-30 17:30] LABS: CALCIUM 7.5 mg/dL (8.8-10.2); CREATININE 3.7 mg/dL (0.7-1.2); POTASSIUM 5.4 mmol/L (3.5-5.1)
[2018-11-30] MEDS ORDERED: NS 0 ML ONE (17:43)
[2018-11-30 21:37] LABS: ALLEN TEST YES; BE -8.2 mmoll (-3.0-3.0); BLOOD TYPE ARTERIAL; HCO3-(ACT) 18.6 mmoll (20.0-26.0); METHB 0.8 % (0.0-1.5); O2(CT) 10.1 mL/dL (15.0-23.0); O2HB 97.4 % (95.0-99.0); PCO2(98.6) 27 mmHg (35-45); PO2(98.6) 156 mmHg (60-100); SAMPLE BLOOD; SAO2 99.7 % (95.0-100.0); SRATE 14 BPM; THB 7.1 g/dL (11.5-17.4); TVOL 500 mL; pH(98.6) 7.38 (7.35-7.45)
[2018-11-30 21:38] LABS: MODALITY VENTILATOR
[2018-11-30 21:47] LABS: MAGNESIUM 1.9 mg/dL (1.5-2.7); PHOSPHORUS 2.6 mg/dL (2.7-4.5)
[2018-11-30 21:50] LABS: CALCIUM 7.5 mg/dL (8.8-10.2); POTASSIUM 5.6 mmol/L (3.5-5.1)
--- NOTE | 2018-11-30 22:07 | CONSULTATION ---
DATE OF CONSULTATION: 11/30/2018 REQUESTING PROVIDER: TAMI Moore REASON FOR CONSULTATION: Ventilator management. HISTORY OF PRESENT ILLNESS: This is a 63-year-old male with a medical history of diabetes, hypertension, seizure, mitral valve endocarditis in 2013, anemia and history of Clostridium difficile colitis. He presented to the ER on 11/27/2018 via EMS with likely seizure activity, subsequent fall and altered mental status. Initial workup in the ER revealed diabetic ketoacidosis, acute kidney injury, [id number] myocardial infarction, upper GI bleeding and atrial fibrillation with rapid ventricular response. He has been admitted to the ICU for further evaluation and management. Since admission the patient required high concentration of oxygen most of the time. Chest x-ray yesterday showed development of perihilar infiltrates or pulmonary edema. He was intubated last night. Chest x-ray following intubation showed pulmonary edema versus pneumonia, particularly in the left upper lobe. At the time of my examination, the patient is intubated and sedated. He is unresponsive to verbal or physical stimuli. The patient's mother, who is a poor historian, is at the bedside. She reports that on 11/27/2018 she witnessed the patient had a seizure activity and fell off of the bed. Later the patient became really confused, so she called 911. She reports the patient had frequent seizure activities recently, and she suspects that the patient has not been compliant with his medication. PAST MEDICAL HISTORY: 1. Diabetes. 2. Hypertension. 3. Seizure. 4. Mitral valve endocarditis in 2013. 5. Anemia. 6. History of C. difficile colitis. 7. Back surgery. SOCIAL HISTORY: The patient is . He lives at home alone. He has 4 daughters but they seldom visit him since divorce. His mother lives in an apartment that is close to the patient's house. Per his mother, the patient has a very light history of smoking. He drinks bourbon once in a while and she did witness he smoked a few puffs of marijuana a month ago. FAMILY HISTORY: Unknown. ALLERGIES: No known drug allergies. REVIEW OF SYSTEMS: Unable to be obtained. PHYSICAL EXAMINATION: Vital signs: Temperature 99.2, blood pressure 99/60, pulse 93, respiratory rate 25. Oxygen saturation 100% on AC mechanical ventilator, with spontaneous rate 14, FIO2 of 40%, tidal volume 500, and PEEP 5. HEENT: Atraumatic. Trachea midline. Mucosa pink and dry. Respiratory: Symmetrical excursion. Auscultation reveals inspiratory wheezing in the bilateral middle lung zones and inspiratory crackles in the bilateral middle and lower lung zones. Cardiovascular: Regular rate and rhythm. Gastrointestinal: Bowel sounds normoactive in all 4 quadrants. Soft and nondistended. Extremities: Bilateral upper extremity swelling noted. Bilateral lower extremity cyanosis of the nail beds with gangrenous changes to the right great toe and several other places of both feet. Neurologic: Sedated and obtunded. LABORATORY DATA: White blood cell 20.39, hemoglobin 7.5, hematocrit 22.5, platelet a 159,000. Sodium 137, potassium 5.5, chloride 111, carbon dioxide 14, BUN 83, creatinine 6.1, glucose 218. ABG pH 7.26, pCO2 is 27, pO2 is 157, HCO3 is 14.3, base excess -13.7 and oxyhemoglobin 97.6. ASSESSMENT: This is a 63-year-old male with a medical history of diabetes, hypertension, seizure, mitral valve endocarditis in 2013, anemia, and history of Clostridium difficile colitis. He has been admitted to the intensive care unit since 11/28/2018 with diabetic ketoacidosis, acute kidney injury, [id number] myocardial infarction, upper gastrointestinal bleeding and atrial fibrillation with rapid ventricular response. 1. Acute hypoxemic respiratory failure requiring intubation. 2. Pneumonia versus pulmonary edema. 3. Sepsis. 4. Urinary tract infection. 5. Endocarditis. 6. Acute kidney injury on sustained low-efficiency dialysis today. 7. Seizure. PLAN: 1. Continue AC mechanical ventilator, and we will start weaning trials when appropriate. 2. Continue nafcillin and Zosyn per Dr. Haynes. 3. Continue fluid resuscitation. 4. Consider pressors and bronchodilators if indicated. 5. Follow up with ABG, CBC, BMP, proBNP and chest x-ray. 6. Continue GI and DVT prophylaxis. 7. Further recommendations pending hospital course. Thank you for the courtesy of this consult. Dictated by TAMI Engle for Nay Galvan MD cc: TAMI Engle MD [facility]
[2018-11-30] MEDS: LEVOPHED 8 MG in D5 1/2 NS 250 ML IV SCH (22:59)
[2018-12-01] MEDS: ZOSYN 3.375 GM in NS 50 ML IV SCH ×3 (00:37→11:40)
[2018-12-01] MEDS: KEPPRA 1,000 MG in NS 100 ML IV SCH ×4 (00:37→23:22)
[2018-12-01 01:13] LABS: CALCIUM 7.7 mg/dL (8.8-10.2); CREATININE 4.2 mg/dL (0.7-1.2); MAGNESIUM 1.9 mg/dL (1.5-2.7); POTASSIUM 5.3 mmol/L (3.5-5.1)
[2018-12-01] MEDS: DIPRIVAN 1% 1,000 MG/100 ML BOTTLE IV SCH ×2 (02:00→15:50)
[2018-12-01] MEDS: NAFCIL 2 GM in NS 100 ML IV SCH ×6 (03:22→23:22)
[2018-12-01] MEDS: PROTONIX IV SCH ×2 (03:22→15:39)
[2018-12-01] MEDS: D5 1/2 NS 1,000 ML IV SCH ×2 (03:28→23:40)
[2018-12-01] MEDS: CEREBYX 300 MG in NS 50 ML IV SCH ×2 (04:51→17:17)
[2018-12-01 05:25] LABS: ALLEN TEST YES; BE -9.2 mmoll (-3.0-3.0); BLOOD TYPE ARTERIAL; HCO3-(ACT) 17.8 mmoll (20.0-26.0); METHB 1.7 % (0.0-1.5); O2(CT) 11.4 mL/dL (15.0-23.0); PCO2(98.6) 30 mmHg (35-45); PO2(98.6) 111 mmHg (60-100); SAMPLE BLOOD; SAO2 99.1 % (95.0-100.0); SRATE 14 BPM; THB 8.3 g/dL (11.5-17.4); TVOL 500 mL; pH(98.6) 7.33 (7.35-7.45)
[2018-12-01 05:28] LABS: MODALITY VENTILATOR
[2018-12-01 06:05] LABS: ALB/GLOB RATIO 0.3; ALBUMIN 1.5 g/dL (3.5-5.0); TOTAL BILIRUBIN 1.26 mg/dL (0.20-1.00); TOTAL PROTEIN 5.8 g/dL (6.3-8.3)
[2018-12-01 06:06] LABS: CALCIUM 7.5 mg/dL (8.8-10.2); CREATININE 4.5 mg/dL (0.7-1.2); MAGNESIUM 1.9 mg/dL (1.5-2.7); POTASSIUM 5.3 mmol/L (3.5-5.1)
[2018-12-01] MEDS: HUMULIN R SUBQ SCH ×4 (06:15→20:03)
[2018-12-01 06:44] LABS: HEMATOCRIT 23.4 % (42.0-52.0); HEMOGLOBIN 7.7 g/dL (14.0-18.0); MCH 28.5 PG (27-31); MCHC 32.9 g/dL (33-37); MCV 86.7 FL (81-99); MPV 11.3 FL (7.4-10.4); RBC 2.7 XMIL (4.7-6.1); RDW 18.3 % (11.5-14.5); WBC 16.78 X1000 (4.8-10.8)
[2018-12-01] MEDS ORDERED: NS 2,000 ML MISC PRN (07:16)
--- NOTE | 2018-12-01 07:38 | Diag Imaging Result Doc PS360 ---
EXAM: CHEST-1 VIEW INDICATION: SOB TECHNIQUE: One view COMPARISON: 11/29/2018 FINDINGS: Support tubes and lines are in stable positions. Inspiration is suboptimal. The ill-defined perihilar opacities have probably marginally improved. The vague left upper lobe opacity is approximately stable. No new consolidation is identified. Cardiac silhouette is stable. IMPRESSION: Slight improvement of perihilar opacities. Electronically signed by Juan Dia 12/01/2018 7:36 AM
--- NOTE | 2018-12-01 08:34 | EKG Report ---
Test Performed on : 11/30/2018 6:56:10 PM Test Reason : RHYTHM CHECK Blood Pressure : / mmHG Vent. Rate : 085 BPM Atrial Rate : 085 BPM P-R Int : 238 ms QRS Dur : 090 ms QT Int : 392 ms P-R-T Axes : 028 012 023 degrees QTc Int : 466 ms Sinus rhythm. with 1st degree AV block. Otherwise normal ECG When compared with ECG of 29-NOV-2018 07:01, No significant change was found Confirmed by Timi VALENZUELA, Pelon ([id number]) on 12/01/2018 10:14:01 AM
[2018-12-01] MEDS: ASPIRIN PR SCH (08:39)
[2018-12-01] MEDS ORDERED: HEPARIN IV PRN (08:52)
--- NOTE | 2018-12-01 09:20 | PROGRESS NOTE ---
DATE: 12/01/2018 SUBJECTIVE: Mr. Reyez looks about the same clinically except anisocoria is more prominent. OBJECTIVE: Left pupil is 5-6 mm and right pupil is 2 mm. I do not see light reaction with either pupil. There is very slight lateral eye movement with passive head turning. Corneal reflex is present but very sluggish bilaterally. Neck is supple. Limb tone is symmetric. He continues to show some withdrawal with stroking of the sole bilaterally. EEG showed generalized slowing with low amplitude a few days ago. Noncontrast CT 4 days ago showed chronic changes with nothing acute. IMPRESSION AND PLAN: Persistent coma, global encephalopathy, presenting with status epilepticus and extreme hyperglycemia. He is clinically not improving and may be slowly deteriorating. Hard to academic director clinically with certainty. CT would be very problematic at this point with dialysis and other support. We will repeat his EEG and compare that with EEG done a few days ago. I have tried to make mother aware of the grave situation. I am not sure she has understood this completely. I have not talked with other family. Thanks for asking Neurology to see Mr. Reyez. cc: MD ALBERTA Rivera III
[2018-12-01 10:37] LABS: CALCIUM 7.5 mg/dL (8.8-10.2); CREATININE 4.5 mg/dL (0.7-1.2); POTASSIUM 5.8 mmol/L (3.5-5.1)
--- NOTE | 2018-12-01 11:31 | EEG REPORT ---
DATE: 12/01/2018 EEG NUMBER: [id number] COMMENT: This is a digitally recorded EEG done portably in the ICU on a patient with persistent coma. FINDINGS: Low amplitude polymorphic and rhythmic theta, mostly 6 to 7 hertz, occurs in bursts lasting 2 to 3 seconds, reaching 20 microvolts frontally. These bursts of activity are by periods of voltage suppression lasting 1-several seconds. Burst suppression pattern is slightly more apparent on this EEG than 2 days ago. There was no change with photic stimulation. There was no other variation in the EEG. There was no epileptiform discharge. INTERPRETATION: Abnormal EEG because of generalized slowing with low amplitude and burst suppression. CORRELATION: This is indicative of a diffuse encephalopathy and is nonspecific. Compared to the 11/29/2018 EEG, findings today are consistent with a decline in cerebral cortical function. cc: Olvin Sullivan III, MD
[2018-12-01 11:36] LABS: HEPATITIS PROFILE ACUTE SEE COMMENTS
[2018-12-01 13:38] LABS: AGAP 5; BUN 3 mg/dL (8-22); CALCIUM 7.9 mg/dL (8.8-10.2); CHLORIDE 112 mmol/L (98-107); COSMO 277; CREATININE 0.4 mg/dL (0.7-1.2); ESTIMATED GFR > 60; GLUCOSE 125 mg/dL (70-104); MAGNESIUM 1.7 mg/dL (1.5-2.7); POTASSIUM 4.3 mmol/L (3.5-5.1); SODIUM 140 mmol/L (136-145); TCO2 23 mmol/L (25-35)
--- NOTE | 2018-12-01 16:34 | CARDIOLOGY PROGRESS NOTE ---
DATE: 12/01/2018 SUBJECTIVE: Mr. Reyez is not responsive. He is currently intubated. PHYSICAL EXAMINATION: He is febrile at 100.8 today at noon. Generally, no acute distress. Eye examination shows asymmetric nonreactive pupils. Cardiovascularly, he is in a regular rate and rhythm with no murmurs. He has no S3. He has trace to 1+ lower extremity edema. He has somewhat dusky toes. His chest exam has coarse breath sounds diffusely. Abdomen is soft, nontender. PERTINENT DATA: Lab-mccarty, his white count is 16.7, hematocrit is 23, platelet count is 200,000. Sodium is 140, potassium 4.3, BUN 3, creatinine 0.4. ProBNP is 21,000. ASSESSMENT: 1. Mr. Reyez is a 63-year-old gentleman who has acute renal failure. His creatinine is 0.4 today, but he is not making any significant amounts of urine. He is currently on SLED. 2. He had some identified vegetations on his mitral valve earlier this hospitalization, suggesting sepsis from an endocarditis source. 3. In addition, he has been in diabetic ketoacidosis with seizures. He certainly has a very poor prognosis at this point and is on a low dose of pressor. He is on antibiotics for his endocarditis. His neurologic findings being nonresponsive, no gag reflex, no corneal reflex, and asymmetric pupils certainly suggest a very poor prognosis. cc: Remberto Giang MD
--- NOTE | 2018-12-01 17:25 | PROGRESS NOTE ---
DATE: 12/01/2018 SUBJECTIVE: Mr. Reyez had a rough day. They had to put him back on some of his pressor at the end of dialysis. OBJECTIVE: His temp has been 100.8, pulse 90, respirations 30, blood pressure 110/60. Pupils are equal and round. Lungs are clear in all lung benitez. Abdomen is soft. No pedal edema. ASSESSMENT AND PLAN: 1. Treating for endocarditis. Continue broad-spectrum antibiotics. He has been treated for oxacillin-sensitive Staphylococcus aureus bacteremia in the past. Dr. Haynes is following. 2. Acute kidney injury, suspect acute tubular necrosis. Going to have to do SLED therapy as we can. 3. Watch hemoglobin and hematocrit. His lab right now, hemoglobin is 7.7 and hematocrit is 23. He may benefit from giving him a unit of blood. We will see what the team wants to do. 4. Postictal from seizure. 5. Questionable acute cholecystitis, abnormal liver function tests. 6. Esophageal wall thickening, suspect esophagitis. 7. Came in with acidosis, in part diabetic ketoacidosis. 8. Diabetes mellitus, type 2. Continue to follow sugars. Overall prognosis is poor. I do not see anything different to try. We will continue his present therapy. His white count does seem to have come down. Electrolytes seem to have improved. Interesting about his creatinine; they read his creatinine as 0.4, but I think that is a mistake. We will check lab again in the morning. cc: Trevin Dubois MD
--- NOTE | 2018-12-01 17:42 | NEPHROLOGY PROGRESS NOTE ---
DATE: 12/01/2018 SUBJECTIVE: He remains sedated on the ventilator. OBJECTIVE: Vital Signs: Blood pressure 82/46, heart rate 91, respirations 25, T-max 100.8 degrees. General: Sedated, unresponsive. Skin: Warm and dry. Neck: Neck veins are distended. Heart: Regular. Lungs: Have equal breath sounds with few scattered crackles. Abdomen: Soft, nontender. Bowel sounds present. Extremities: With 2+ edema. The toes are blanched on the left foot, toes 2 and 3. Still no pulses. IMPRESSION AND PLAN: Acute kidney injury. Continue SLED today with a 4K bath and 27 bicarbonate. Goal of 3 to 4 L ultrafiltration. Increase IV heparin dose as appropriate. No other changes. cc: Javier Hernandez MD
[2018-12-01 17:57] LABS: CALCIUM 7.4 mg/dL (8.8-10.2); CREATININE 2.1 mg/dL (0.7-1.2); MAGNESIUM 1.7 mg/dL (1.5-2.7); POTASSIUM 5.1 mmol/L (3.5-5.1)
[2018-12-01] MEDS: LEVOPHED 8 MG in D5 1/2 NS 250 ML IV SCH (18:13)
--- NOTE | 2018-12-01 18:39 | INFECTIOUS DISEASE PROGRESS NO ---
DATE: 12/01/2018 PRESENT ILLNESS: The patient has an oxacillin-sensitive Staphylococcus aureus mitral valve endocarditis, pneumonia, and urinary tract infection. MEDICATIONS: The patient is on nafcillin 2 g IV every 4 hours. This is the 1st day of treatment with nafcillin. PHYSICAL EXAMINATION: Vital Signs: Temperature is 101 degrees, pulse 88, respirations 31, blood pressure 107/45. General: This is an ill-appearing, middle-aged male. He is intubated and sedated. Head, eyes, ears, nose, and throat: He has an orotracheal tube in place. There is no drainage from the nose or ears. Neck: The patient has a right-sided internal jugular dialysis catheter in place. The site is not erythematous or draining. Lungs: Clear to auscultation. Cardiovascular: Heart rate is regular. Abdomen: Soft and does not appear to be tender. Extremities: The patient continues to have dry gangrenous changes on both feet. Neurologic: The patient is obtunded. He does not respond to verbal stimuli. There is no tremor. LAB AND RADIOLOGY: CBC-WBC 16.78, hgb 7.7, platelets 200K. Creatinine-2.4. GFR- 28. Blood gases-pH 7.33, pO2 111, pCO2 30. Chest [id number] perihilar infiltrates. ASSESSMENT AND PLAN: The patient has an oxacillin-sensitive Staphylococcus aureus endocarditis with associated pneumonia and urinary tract infection. I plan to treat the patient for a total of 6 weeks with IV nafcillin. The patient is having fever today, and I have ordered 2 repeat blood cultures. COMORBIDITIES: Diabetes mellitus, seizure disorder, and renal failure. cc: Colin Haynes MD [facility]
[2018-12-01 21:39] LABS: CALCIUM 7.4 mg/dL (8.8-10.2); CREATININE 2.4 mg/dL (0.7-1.2); MAGNESIUM 1.7 mg/dL (1.5-2.7); POTASSIUM 5.1 mmol/L (3.5-5.1)
[2018-12-02 01:32] LABS: CREATININE 2.6 mg/dL (0.7-1.2); MAGNESIUM 1.7 mg/dL (1.5-2.7); POTASSIUM 5.3 mmol/L (3.5-5.1)
[2018-12-02 01:33] LABS: CALCIUM 6.9 mg/dL (8.8-10.2)
[2018-12-02] MEDS ORDERED: CALCIUM GLUCONATE 1 GM in NS 50 ML IV ONE (02:53)
[2018-12-02] MEDS: NAFCIL 2 GM in NS 100 ML IV SCH ×5 (03:22→20:56)
[2018-12-02] MEDS: PROTONIX IV SCH ×2 (03:22→14:34)
[2018-12-02] MEDS: CEREBYX 300 MG in NS 50 ML IV SCH ×2 (04:54→17:39)
[2018-12-02] MEDS: DIPRIVAN 1% 1,000 MG/100 ML BOTTLE IV SCH (04:55)
[2018-12-02] MEDS: D5 1/2 NS 1,000 ML IV SCH ×2 (04:56→18:08)
[2018-12-02 05:34] LABS: ALLEN TEST YES; BE -8.2 mmoll (-3.0-3.0); BLOOD TYPE ARTERIAL; HCO3-(ACT) 18.6 mmoll (20.0-26.0); METHB 1.6 % (0.0-1.5); O2(CT) 10.2 mL/dL (15.0-23.0); O2HB 96.8 % (95.0-99.0); PCO2(98.6) 29 mmHg (35-45); PO2(98.6) 123 mmHg (60-100); SAMPLE BLOOD; SAO2 99.7 % (95.0-100.0); SRATE 14 BPM; THB 7.3 g/dL (11.5-17.4); TVOL 500 mL; pH(98.6) 7.36 (7.35-7.45)
[2018-12-02 05:36] LABS: MODALITY VENTILATOR
[2018-12-02 06:09] LABS: CALCIUM 7.1 mg/dL (8.8-10.2); CREATININE 2.8 mg/dL (0.7-1.2); MAGNESIUM 1.8 mg/dL (1.5-2.7); POTASSIUM 5.5 mmol/L (3.5-5.1)
[2018-12-02] MEDS: HUMULIN R SUBQ SCH ×4 (06:17→21:13)
[2018-12-02] MEDS ORDERED: NS 2,000 ML MISC PRN (07:24)
--- NOTE | 2018-12-02 07:28 | Diag Imaging Result Doc PS360 ---
EXAM: CHEST-PORTABLE 12/02/2018 HISTORY: Vent protocol TECHNIQUE: AP portable at 0608 COMMENT: There is a large bore catheter in the right internal jugular with its tip in the right atrium. There is an endotracheal tube with its tip slightly below the thoracic inlet. The inspiration is suboptimal. Considering differences in technique there has been no significant change since 12/01/2018. IMPRESSION: Stable chest. Electronically signed by Sedrick Gil 12/02/2018 7:26 AM
[2018-12-02] MEDS: HEPARIN IV PRN (08:00)
[2018-12-02] MEDS: KEPPRA 1,000 MG in NS 100 ML IV SCH ×3 (08:07→15:27)
[2018-12-02] MEDS: ASPIRIN PR SCH (08:08)
--- NOTE | 2018-12-02 09:51 | PROGRESS NOTE ---
DATE: 12/02/2018 SUBJECTIVE: Mr. Reyez started dialysis. He was basically unresponsive. is OBJECTIVE: Vital Signs: His temperature 98.2 degrees, pulse 80, respirations 20, blood pressure 97/59. HEENT: Pupils are equal round. Lungs: Are clear in all lung benitez. CARDIOVASCULAR: Regular rhythm and regular rate. No murmur or S3. Abdomen: Soft. Skin: Warm and dry. Extremities: Both feet with signs of ischemia and some purpura and, absent palpable pedal pulses. IMAGING: His chest x-ray from this morning, stable chest. Large bore catheter right internal jugular with its tip in the right atrium. Endotracheal tube slightly below the thoracic inlet. Inspiration was suboptimal but appeared stable. ASSESSMENT AND PLAN: 1. Oxacillin-sensitive Staphylococcus aureus mitral valve endocarditis, underlying pneumonia and tract infection. Continue nafcillin 2 g IV 4 hours, I think day 2 of treat of treatment with nafcillin. 2. Acute kidney injury, suspect acute tubular necrosis. Continue SLED therapy and try to pull off some volume. 3. Continue to watch hematocrit and hemoglobin. Hematocrit 23, hemoglobin 7.7 which is stable from yesterday. I do not know if he would benefit from a transfusion. 4. Postictal from seizures. 5. Questionable acute cholecystitis, abnormal liver function tests. 6. Esophageal wall thickening. 7. Came in with acidosis, diabetic ketoacidosis. 8. Continue to try to follow sugars. He has multi-system failure and a very guarded prognosis. Calcium 7.1. Previous albumin was 1.5, severe protein calorie malnutrition. cc: Trevin Dubois MD
[2018-12-02 10:05] LABS: CALCIUM 6.9 mg/dL (8.8-10.2); CREATININE 2.9 mg/dL (0.7-1.2); MAGNESIUM 1.9 mg/dL (1.5-2.7)
[2018-12-02] MEDS ORDERED: ATIVAN IV PRN (13:05)
[2018-12-02 13:20] LABS: ALLEN TEST YES; BLOOD TYPE ARTERIAL; HCO3-(ACT) 21.9 mmoll (20.0-26.0); METHB 0.1 % (0.0-1.5); O2(CT) 10.2 mL/dL (15.0-23.0); O2HB 98.3 % (95.0-99.0); PCO2(98.6) 33 mmHg (35-45); PO2(98.6) 118 mmHg (60-100); SAMPLE BLOOD; SAO2 99.8 % (95.0-100.0); SRATE 14 BPM; THB 7.2 g/dL (11.5-17.4); TVOL 500 mL
[2018-12-02 13:21] LABS: MODALITY VENTILATOR
[2018-12-02 13:27] LABS: CALCIUM 7.2 mg/dL (8.8-10.2); CREATININE 1.5 mg/dL (0.7-1.2); MAGNESIUM 1.8 mg/dL (1.5-2.7); POTASSIUM 4.3 mmol/L (3.5-5.1)
--- NOTE | 2018-12-02 15:39 | NEPHROLOGY PROGRESS NOTE ---
DATE: 12/02/2018 SUBJECTIVE: He remains sedated on the ventilator. OBJECTIVE: Vital Signs: Blood pressure 97/59, heart rate 83, respiration 27, afebrile. Intake 2.6 L; output 3 L with only 35 mL of urine output. General: On physical exam, no acute distress. Skin: Warm and dry. Eyes: Conjunctivae are pink. Neck: Neck veins are not distended. Heart: Regular and tachycardic. Lungs: Equal and increased respiratory rate. Abdomen: Soft, nontender. Diminished bowel sounds. Extremities: Have 1+ edema. His toes continue to evolve. IMPRESSION: Acute kidney injury. Remains oliguric. Slow, low efficiency dialysis today using a 3 potassium bath, 27 bicarbonate with a goal of 3 to 4 liters ultrafiltration as his blood pressure allows. cc: Javier Hernandez MD
[2018-12-02] MEDS ORDERED: NS 1,000 ML IV ONE (16:56)
[2018-12-02] MEDS: LEVOPHED 8 MG in D5 1/2 NS 250 ML IV SCH (17:41)
[2018-12-02 18:17] LABS: AGAP 9; BUN 9 mg/dL (8-22); CALCIUM 7.3 mg/dL (8.8-10.2); CHLORIDE 110 mmol/L (98-107); COSMO 278; CREATININE 1.1 mg/dL (0.7-1.2); ESTIMATED GFR > 60; GLUCOSE 172 mg/dL (70-104); MAGNESIUM 1.8 mg/dL (1.5-2.7); POTASSIUM 4.5 mmol/L (3.5-5.1); SODIUM 138 mmol/L (136-145); TCO2 19 mmol/L (25-35)
[2018-12-02 21:05] LABS: ALLEN TEST YES; BE -9.9 mmoll (-3.0-3.0); BLOOD TYPE ARTERIAL; HCO3-(ACT) 17.2 mmoll (20.0-26.0); METHB 1.5 % (0.0-1.5); O2(CT) 10.6 mL/dL (15.0-23.0); O2HB 96.3 % (95.0-99.0); PCO2(98.6) 34 mmHg (35-45); PO2(98.6) 104 mmHg (60-100); SAMPLE BLOOD; SAO2 99.5 % (95.0-100.0); SRATE 14 BPM; THB 7.7 g/dL (11.5-17.4); TVOL 500 mL; pH(98.6) 7.28 (7.35-7.45)
[2018-12-02 21:06] LABS: MODALITY VENTILATOR
[2018-12-02 23:42] LABS: CALCIUM 7.2 mg/dL (8.8-10.2); CREATININE 1.6 mg/dL (0.7-1.2); MAGNESIUM 1.8 mg/dL (1.5-2.7); POTASSIUM 5.3 mmol/L (3.5-5.1)
[2018-12-03 02:19] LABS: CREATININE 1.7 mg/dL (0.7-1.2); MAGNESIUM 1.8 mg/dL (1.5-2.7)
[2018-12-03] MEDS: NAFCIL 2 GM in NS 100 ML IV SCH ×8 (03:15→23:17)
[2018-12-03] MEDS: PROTONIX IV SCH ×3 (03:17→15:47)
[2018-12-03] MEDS: CEREBYX 300 MG in NS 50 ML IV SCH ×2 (05:06→17:53)
[2018-12-03] MEDS: LEVOPHED 8 MG in D5 1/2 NS 250 ML IV SCH ×2 (05:06→17:53)
[2018-12-03 05:08] LABS: ALLEN TEST YES; BE -7.5 mmoll (-3.0-3.0); BLOOD TYPE ARTERIAL; HCO3-(ACT) 19.1 mmoll (20.0-26.0); METHB 1.6 % (0.0-1.5); MODALITY VENTILATOR; O2(CT) 14.2 mL/dL (15.0-23.0); O2HB 96.3 % (95.0-99.0); PCO2(98.6) 31 mmHg (35-45); PO2(98.6) 131 mmHg (60-100); SAMPLE BLOOD; SAO2 99.3 % (95.0-100.0); SRATE 14 BPM; THB 10.3 g/dL (11.5-17.4); TVOL 500 mL; pH(98.6) 7.35 (7.35-7.45)
[2018-12-03] MEDS: HUMULIN R SUBQ SCH ×5 (05:46→20:46)
[2018-12-03 06:57] LABS: CALCIUM 7.8 mg/dL (8.8-10.2); CREATININE 1.9 mg/dL (0.7-1.2); MAGNESIUM 1.8 mg/dL (1.5-2.7); POTASSIUM 5.5 mmol/L (3.5-5.1)
--- NOTE | 2018-12-03 07:07 | PROGRESS NOTE ---
DATE: 12/03/2018 SUBJECTIVE: Mr. Reyez was sleeping. I could not arouse him. OBJECTIVE: Temperature 99.6 degrees, pulse 77, respirations 26, blood pressure 101/53. Lungs are clear anterolaterally. Cardiovascular Examination: Regular rhythm and rate without murmur or S3. Abdomen is soft. Skin warm and dry. Both feet are cool to touch with some ecchymotic areas of ischemia on the distal toes. Hi blood pressure seemed to improve a little bit after dialysis yesterday. Still on pressors. His urine output was 4200 mL. ASSESSMENT AND PLAN: 1. Acute kidney injury. Remains oliguric. He is getting slow, low efficiency dialysis. Blood pressures are tenuous. Continue sustained low-efficiency dialysis therapy under Dr. Hernandez's direction. 2. Oxacillin-sensitive Staphylococcus aureus, mitral valve endocarditis. Continue his nafcillin 2 g intravenous every 4 hours. 3. Continue to follow his hematocrit and hemoglobin. His hematocrit is 23 and hemoglobin 7.7, which is stable. 4. Postictal from seizures when he presented. 5. Questionable acute cholecystitis with abnormal liver functions. 6. Had noticed some esophageal wall thickening on radiographs. 7. Came in with acidosis and diabetic acidosis. This seems to have improved. 8. Hypotension, multisystem failure. Poor prognosis. LABORATORY DATA: Today, sodium 135, potassium 5.0, chloride 107, BUN 15, creatinine 1.7. Still with leukocytosis. cc: Trevin Dubois MD
--- NOTE | 2018-12-03 07:44 | Diag Imaging Result Doc PS360 ---
EXAM: CHEST-PORTABLE 12/03/2018 HISTORY: on vent TECHNIQUE: AP portable at 0532 COMMENT: There is a right internal jugular central venous catheter with its tip in the right atrium. There is an endotracheal tube with its tip at the thoracic inlet. Compared to the previous study of 12/02/2018 there has been no significant change. IMPRESSION: Stable chest. Electronically signed by Sedrick Gil 12/03/2018 7:42 AM
[2018-12-03] MEDS: ASPIRIN PR SCH (08:28)
[2018-12-03] MEDS: KEPPRA 1,000 MG in NS 100 ML IV SCH ×5 (08:28→23:17)
[2018-12-03 09:46] LABS: CALCIUM 7.5 mg/dL (8.8-10.2); CREATININE 2.2 mg/dL (0.7-1.2); MAGNESIUM 1.9 mg/dL (1.5-2.7)
[2018-12-03 13:15] LABS: CALCIUM 7.8 mg/dL (8.8-10.2); CREATININE 2.5 mg/dL (0.7-1.2); MAGNESIUM 1.9 mg/dL (1.5-2.7); POTASSIUM 4.4 mmol/L (3.5-5.1)
[2018-12-03] MEDS: D5 1/2 NS 1,000 ML IV SCH (14:23)
[2018-12-03 17:22] LABS: CALCIUM 7.8 mg/dL (8.8-10.2); CREATININE 2.6 mg/dL (0.7-1.2); MAGNESIUM 1.9 mg/dL (1.5-2.7); POTASSIUM 4.1 mmol/L (3.5-5.1)
[2018-12-03 22:13] LABS: CALCIUM 7.9 mg/dL (8.8-10.2); MAGNESIUM 1.9 mg/dL (1.5-2.7); POTASSIUM 4.9 mmol/L (3.5-5.1)
[2018-12-04 01:53] LABS: CALCIUM 7.9 mg/dL (8.8-10.2); MAGNESIUM 1.9 mg/dL (1.5-2.7); POTASSIUM 4.8 mmol/L (3.5-5.1)
[2018-12-04] MEDS: PROTONIX IV SCH ×2 (04:53→15:47)
[2018-12-04] MEDS: CEREBYX 300 MG in NS 50 ML IV SCH (04:53)
[2018-12-04] MEDS: NAFCIL 2 GM in NS 100 ML IV SCH ×4 (04:54→15:47)
[2018-12-04 04:55] LABS: ALLEN TEST YES; BE -8.9 mmoll (-3.0-3.0); BLOOD TYPE ARTERIAL; METHB 1.7 % (0.0-1.5); O2(CT) 8.3 mL/dL (15.0-23.0); O2HB 96.4 % (95.0-99.0); PCO2(98.6) 27 mmHg (35-45); PO2(98.6) 125 mmHg (60-100); SAMPLE BLOOD; SAO2 99.3 % (95.0-100.0); SRATE 14 BPM; THB 5.9 g/dL (11.5-17.4); TVOL 500 mL; pH(98.6) 7.37 (7.35-7.45)
[2018-12-04 04:57] LABS: MODALITY VENTILATOR
[2018-12-04] MEDS ORDERED: NS 2,000 ML MISC PRN (05:45)
[2018-12-04] MEDS: HUMULIN R SUBQ SCH ×2 (07:01→11:00)
--- NOTE | 2018-12-04 07:04 | Diag Imaging Result Doc PS360 ---
EXAM: CHEST-PORTABLE HISTORY: on vent TECHNIQUE: Portable chest single view COMPARISON: 12/03/2018 FINDINGS: Endotracheal tube is in good position. No change in the right jugular line. The heart remains mildly enlarged. There is mild central vascular prominence. There is atelectasis and/or infiltrates in the left base with a tiny left pleural effusion. IMPRESSION: Stable chest. Electronically signed by Hipolito Kohli 12/04/2018 7:02 AM
[2018-12-04 07:29] LABS: CALCIUM 7.6 mg/dL (8.8-10.2); CREATININE 3.5 mg/dL (0.7-1.2); MAGNESIUM 1.9 mg/dL (1.5-2.7)
[2018-12-04] MEDS: LEVOPHED 8 MG in D5 1/2 NS 250 ML IV SCH (08:14)
--- NOTE | 2018-12-04 08:37 | NEPHROLOGY PROGRESS NOTE ---
DATE: 12/04/2018 SUBJECTIVE: He is sedated on the ventilator. OBJECTIVE: Vital Signs: Blood pressure 130/73, heart rate 78, respirations 29, temperature 99.1 degrees. General: No acute distress. Skin: Warm and dry. Conjunctivae are pink. Neck: Neck veins are not visible because of increased respiratory effort. Lungs: Equal breath sounds with rhonchi. Heart: Regular. No gallops. Abdomen: Soft, nontender. Diminished bowel sounds, but present. Extremities: 2+ edema. No clubbing or cyanosis. INPUT AND OUTPUT: Intake 1.7 L. Output 40 mL. IMPRESSION: Acute kidney injury. No improvement. Continue SLED today with a 3K bath and a goal of 3 L ultrafiltration as tolerated. I will increase his bicarbonate on the machine today to 32. cc: Javier Hernandez MD
[2018-12-04] MEDS: D5 1/2 NS 1,000 ML IV SCH (08:53)
[2018-12-04] MEDS: KEPPRA 1,000 MG in NS 100 ML IV SCH ×2 (08:53→17:40)
[2018-12-04] MEDS: ASPIRIN PR SCH (08:53)
--- NOTE | 2018-12-04 09:17 | PROVIDER PROGRESS NOTE ---
Progress Note please see written note for details. I discussed with his mother and daughter the multiple systems failure (respiratory, renal, shock) with to start with not a great health given poor diabetes control. Neuro is also following and status is uncertain. They understands the possibility of poor prognosis.
--- NOTE | 2018-12-04 10:54 | CARDIOLOGY PROGRESS NOTE ---
DATE: 12/04/2018 SUBJECTIVE: Mr. Reyez is still sedated, on the ventilator, nonresponsive. PHYSICAL EXAMINATION: He is afebrile. The last documented temperature was 100.8 degrees on the 12th, heart rate of 75 blood pressure 96/55. He continues on pressors. Generally no acute distress. He is nonresponsive on the sedation.Cardiovascular: He is in a regular rate and rhythm. He has a 2/6 systolic murmur that is best heard at the left lower sternal border. He has no lower extremity edema. He has mildly cool distal extremities that are dusky in appearance, slightly worsened from old. Chest: His chest exam sounds relatively clear to auscultation bilaterally. He has no increased work of breathing. Abdomen: Soft, nontender, nondistended. He has no obvious organomegaly. Skin: Warm and dry throughout. PERTINENT DATA: His lab data shows a white count that has not been checked since the . His sodium is 136, his potassium is 5, his BUN is 27, creatinine is 3.5. He is currently on SLED. ASSESSMENT: Mr. Reyez is a 63-year-old male, who appears to have mitral valve endocarditis. He currently is septic has respiratory failure, acute kidney injury on dialysis. PLAN: At present I do not have any acute cardiovascular recommendations. He has a very poor neurologic prognosis and continues on present pressors with respiratory failure. Please contact us if we can be of further service with this patient. I do not have any acute recommendations. He is currently on antibiotic coverage for his presumed mitral valve endocarditis. If he recovers to the point of extubation and return of cognitive function, then he will likely need a BRIAN. cc: Remberto Giang MD [facility]
[2018-12-04 11:28] LABS: CALCIUM 7.2 mg/dL (8.8-10.2); CREATININE 3.8 mg/dL (0.7-1.2); MAGNESIUM 1.9 mg/dL (1.5-2.7); POTASSIUM 4.7 mmol/L (3.5-5.1)
--- NOTE | 2018-12-04 12:15 | PROGRESS NOTE ---
DATE: 12/04/2018 SUBJECTIVE: Mr. Reyez is really about the same. He is unresponsive. He is intubated. His mother was at the bedside. We had a long discussion. OBJECTIVE: Vital Signs: Temperature 98.3 degrees, pulse 75, respirations 23, blood pressure 96/55. HEENT: Pupils are equal and round. Neck: He has no distended neck veins. Lungs: Clear anterolateral. Cardiovascular: Regular rhythm and rate. Monitor shows sinus rhythm. Abdomen: Soft. Extremities: His both feet are cold with what appears to be ischemia in his toes. The distal metatarsals on both feet with some ulceration and ecchymosis. LABORATORY DATA: Blood sugar 281, 217, 171. IMPRESSION: 1. Appears to have mitral valve endocarditis. 2. Respiratory failure. cc: Trevin Dubois MD
[2018-12-04] MEDS ORDERED: RIFAMPIN 600 MG in NS 100 ML IV SCH (13:00)
--- NOTE | 2018-12-04 13:08 | PROGRESS NOTE ---
DATE: 12/04/2018 SUBJECTIVE: Mr. Khan has not woken up or spoken. He is intubated. Appears to be about the same as yesterday. OBJECTIVE: Vitals: Temperature 99 degrees, pulse 64, respirations 20, blood pressure 183/43. Eyes: Pupils are equal and round. Lungs: Clear in all lung benitez. Cardiovascular: Regular rhythm and rate without murmur or S3. Abdomen: Soft. Skin: Warm and dry. LABORATORY: Urine output from yesterday, I think that was with dialysis, they took off 4000 mL. Blood sugar 281, 217, 171. ASSESSMENT/PLAN: 1. Appears to have mitral valve endocarditis. Continue his broad-spectrum antibiotics. He grew out Staphylococcus from a culture, first set was 11/27/2018, second 12/01, only 1 out of 2 was positive for Staph coccus aureus. Of course this appears to be sensitive to oxacillin, so continue his nafcillin. 2. Respiratory failure. Came in septic. Treating him for pneumonia as well. 3. Acute tubular necrosis. Continues to get SLED therapy. Dr. Hernandez following. 4. Peripheral vascular disease. His feet with ischemia and poor circulation lower extremities. Overall, he has made very little improvement. Continue his current care. I have discussed with mother. We may need to think about changing to comfort care, but at present time we will continue. 5. We are covering for seizures as well. Apparently came in with a seizure. He is on fosphenytoin and levetiracetam. We will continue these. cc: Trevin Dubois MD
--- NOTE | 2018-12-04 13:17 | INFECTIOUS DISEASE PROGRESS NO ---
DATE: 12/04/2018 PRESENT ILLNESS: The patient has an oxacillin-sensitive Staphylococcus aureus mitral valve endocarditis, pneumonia, and urinary tract infection. Despite high doses of nafcillin, the patient continues to have positive blood cultures. MEDICATIONS: As mentioned above, patient is on nafcillin 2 g IV every 4 hours. Day 1 of treatment will be the first day that the patient's blood cultures are sterile, but unfortunately, they are not sterile at this point. PHYSICAL EXAMINATION: Vital Signs: Temperature is 99 degrees, pulse 64, respirations 20, blood pressure 83/43. General: This is an ill-appearing middle-aged male. He is intubated and sedated. Head, Eyes, Ears, Nose, and Throat: No drainage was noted from the nose or ears. He has an orotracheal tube in place. Neck: The patient on the right side has internal jugular vein dialysis catheter in place. The site is not erythematous or purulent. Lungs: Clear to auscultation. Cardiovascular: Heart rate is regular. Abdomen: Soft and nontender. Extremities: Both feet now are mottled and cool. They also have gangrenous changes. Neurologic: The patient is obtunded. He does not respond to verbal stimuli. There is no tremor. DIAGNOSTIC STUDIES: There is no CBC for today. The repeat blood cultures from the 08/23 is positive for Staphylococcus aureus. Blood gases show a pH of 7.37, a PO2 of 125, and a pCO2 of 27. Creatinine is 3.8, GFR is 16. Chest x-ray shows left lower lobe atelectasis/infiltrate with a small pleural effusion. ASSESSMENT AND PLAN: 1. Patient has Staphylococcus aureus endocarditis. 2. He also has Staphylococcus aureus pneumonia and urinary tract infection. Despite the high dose of nafcillin, the blood cultures continue to be positive. I am going to go ahead and add IV rifampin. If the blood cultures still cannot the sterilize, then the only option left would mitral valve replacement, but I think it is doubtful this patient would be a candidate for that procedure. COMORBIDITIES: 1. Diabetes mellitus. 2. Seizure disorder. 3. Renal failure. cc: Colin Haynes MD
[2018-12-04] MEDS: HEPARIN IV PRN (13:28)
[2018-12-04 14:56] LABS: CALCIUM 7.3 mg/dL (8.8-10.2); CREATININE 2.3 mg/dL (0.7-1.2); MAGNESIUM 1.7 mg/dL (1.5-2.7); POTASSIUM 4.3 mmol/L (3.5-5.1)
[2018-12-04] MEDS ORDERED: MORPHINE IV PRN (16:37)
[2018-12-04] MEDS ORDERED: ATROPINE 1 % OPHTH SOLN SL PRN (16:38)
[2018-12-04 20:36] VITALS: BP 84/36
--- NOTE | 2018-12-19 23:55 | DISCHARGE SUMMARY ---
ADMISSION DATE: 11/28/2018 DISCHARGE DATE: 12/04/2018 HOSPITAL COURSE: This 63-year-old had multiple seizures, increased lethargy and unresponsiveness. He had longstanding history of epilepsy, type 2 diabetes and hypertension, admitted in 2013 for DKA complicated by DUNIA, [id number] amputation. The patient also had anemia at this time, concerned that he may have had a GI bleed. The last time he was found to have mitral valve endocarditis, treated with 4 weeks of intravenous antibiotics. Also at that time found to have C. difficile and treated for that as well. There was no family at the bedside initially. Brought in by EMS with his mother. From what I gather from the nurses, the mother was a very poor historian. The patient had been having frequent seizures for a couple of months, over the last couple of weeks having almost daily seizures, but when he usually got a seizure he would bounce right back to baseline. Today it was unusual and he had 3 or 4 otgz-or-loax seizures and never came back to cognitive baseline. It was at that juncture that the mother called EMS and he was brought in. The patient had not had any seizure activity since he had been in the emergency room. Reported that he was not taking his medication, his insulin or seizure medication. The patient over the last couple of weeks he had really not been ambulating do anything meaningful, according to the mother's reports. Unfortunately, she could not give any information from the patient. Admitted with diabetic ketoacidosis, [id number] elevation myocardial infarction, status epilepticus, upper gastrointestinal bleed, acute kidney injury secondary to diabetic ketoacidosis, and poor p.o. intake, probable mild acute cholecystitis, peripheral arterial disease, splenomegaly of uncertain origin, esophagitis probably causing upper gastrointestinal bleeding versus possible neoplasia, and possible sepsis due to intra-abdominal process. GI was consulted. The patient's hemoglobin was 10 without witnessed GI bleeding, hemoptysis or melena. [place] sepsis, with known underlying history of endocarditis and questionable acute cholecystitis. Dr. Hernandez was consulted. Acute kidney injury, presumed acute tubular necrosis, overlying ischemic nephropathy with asymmetrical kidneys. We were going to try for volume mandaeism. Cardiology came in on 11/30, so Dr. Sullivan was asked to see him 11/30. At this time mechanically ventilated, sedated on propofol. Infectious Disease found to have oxacillin-sensitive Staphylococcus aureus, mitral valve endocarditis, pneumonia and urinary tract infection. The patient continued to be unresponsive and showed further decline, and family was talking about requesting comfort measures. The patient on 12/04/2018 at 1920 hours, I believe. cc: Trevin Dubois MD
== END 2018-12-04 19:20 | disposition expired | DRG 870 ==
LOC: ED 20:13 → SUATTDRO 11-28 03:31 → ICU 11-28 03:31
PROVIDERS: ATTEND Emergency Medicine
CPT/HCPCS: 31500; 36569; 51701; 51702; 70450; 71010; 71045; 74176; 76770; 80048; 80053; 80061; 80074; 80076; 80101; 80177; 80185; 80299; 80301; 80307; 80320; 80324; 80345; 80346; 80353; 80358; 80361; 80365; 81001; 82055; 82270; 82271; 82330; 82491; 82550; 82553; 82570; 82607; 82728; 82746; 82805; 82948; 83036; 83540; 83690; 83735; 83880; 83992; 84100; 84300; 84484; 85025; 85027; 85045; 85610; 85730; 86850; 86900; 86901; 87040; 87070; 87077; 87088; 87186; 87205; 93005; 93010; 93306; 94002; 94003; 94660; 94761; 95816; 96361; 96365; 96366; 96367; 96368; 96375; 99285; 99291; A9270; C9113; G0431; G0434; G0479; G0480; G6040; J0610; J0878; J1165; J1644; J1940; J1953; J2543; J3370; J3480; J7030; J7040; J7050; P9612; Q2009; S0032; S0164; XXXXX